=== PATIENT | female | born 1990 | race Caucasian/White ===

== ENCOUNTER 2016-04-03 22:52 | Outpatient (CLI) | payer BC, OTHER, MEDICAID ==
[~2016-04-03] VITALS: Ht 167.6 cm; Wt 122.9 kg
[~2016-04-03 22:52] MED LIST: ACET-789 PO; CPR500T PO; HYDR1TAB66 PO; INDO25CA PO; NITR-65 PO; ONDN4T PO; PREN-102 PO; PROG50VI5 IM
--- OUTSIDE RECORDS SUMMARY | 2016-04-03 22:56 | XMS REPORT | Continuity of Care Document ---
Author Author [facility] Organization [facility] Address Unknown Phone Unavailable Care Team Providers Care Air Hammer Stripper Name Role Phone NO, LOCAL PHYSICIAN PCP Unavailable Insurance Providers Payer Name Policy Number Subscriber Name Relationship Jimmy [employer] [id number] Rogers Roche 18 Self / Same As Patient Advance Directives Directive Response Recorded Date/Time Advance Directives No 01/05/16 8:17am Health Care Power of Bottom Precipitator Operator No 01/05/16 8:17am Organ Donor Yes 01/05/16 8:17am Resuscitation Status Full Code 01/05/16 8:17am Problems Active Problems Medical Problem Onset Date Status 18 weeks gestation of Unknown Acute Medications Current Home Medications Medication Dose Units Route Directions Days/Qty Instructions Start Date Vits #93/Iron Fum/Fa 1 Each 1 Each Oral Daily 01/14/14 Progesterone 50 Mg/1 Ml 50 Mg Intramusc Weekly 01/05/16 Past Home Medications Medication Directions Ordered Status Ondansetron Hcl 4 Mg Tab, 1 Tab Oral Every 6 Hours as needed 08/03/11 Discontinued Ciprofloxacin 500 Mg Tablet, 1 Tab Oral Twice A Day 08/03/11 Discontinued Hydrocodone Bit/Acetaminophen 1 Each Tablet, 1 Each Oral Every 6 Hours as needed 08/03/11 Discontinued Social History Social History Problem Response Recorded Date/Time Alcohol Use Rarely Uses 03/11/2014 8:35pm Recreational Drug Use N SMOKES MARIJUANA 03/11/2014 8:35pm Recent Foreign Travel No 01/05/2016 9:06am Recent Infectious Disease Exposure No 01/05/2016 9:06am Sexually Transmitted Disease No 03/11/2014 8:35pm Smoking Status Light Tobacco Smoker 01/05/2016 8:17am Recent Hopitalizations No 01/05/2016 8:17am Sexually Transmitted Disease No 03/11/2014 8:35pm Hx Sexually Transmitted Disorders No 08/05/2011 1:05pm Query Response Start Date Stop Date Smoking Status Light Tobacco Smoker Hospital Discharge Instructions No hospital discharge instructions. Plan of Care Discharge Date 01/05/16 9:16am Prescriptions See Medication Section Functional Status No functional status results. Allergies, Adverse Reactions, Alerts Allergen Type Severity Reaction Status Last Updated Penicillins ([id number]) Allergy Unknown Active 03/11/14 Immunizations No immunization records. Vital Signs Acute Vital Signs Vital Response Date/Time Height (Feet) 5 feet 01/05/2016 8:17am Height (Inches) 6.00 inches 01/05/2016 8:17am Height (Calculated Centimeters) 167.627303 cm 01/05/2016 8:17am Weight (Pounds) 255 pounds 01/05/2016 8:17am Weight (Ounces) 0.0 oz 01/05/2016 8:17am Weight (Calculated Grams) 967706.06 gm 01/05/2016 8:17am Weight (Calculated Kilograms) 115.177775 kilograms 01/05/2016 8:17am Calculated BMI 41.2 01/05/2016 8:17am Results No known relevant diagnostic tests, laboratory data and/or discharge summary. Procedures No known history of procedures. Encounters Encounter Location Arrival/Admit Date Discharge/Depart Date Attending Provider Departed Clinic [facility] 01/05/16 5:40am 01/05/16 9: 16am MYRON ABAD DO
[2016-04-03 23:14] VITALS: BP 136/64
[2016-04-03 23:26] LABS: BILIRUBIN,URINE NEGATIVE (NEGATIVE); KETONES,URINE NEGATIVE (NEGATIVE); LEUKOCYTE ESTERASE ,URINE 1+ (NEGATIVE); NITRITE,URINE NEGATIVE (NEGATIVE); PH,URINE 6 (5-9); PROTEIN,URINE NEGATIVE (NEGATIVE); UROBILINOGEN,URINE NORMAL (NORMAL)
[2016-04-03 23:44] LABS: SQUAMOUS EPITHELIAL CELL,UR 25-50 /HPF; WBC,URINE RARE /HPF
--- NOTE | 2016-04-05 11:59 | Physician Query-Final Dx ---
JAMES FITZPATRICK 04/05/16 1159: Clinic Account Progress/Dx Physician Query: Please give diagnosis Date of Service Apr 03, 2016 at 22:52 WILLIAM BULLARD DO 04/20/16 1003: Clinic Account Progress/Dx DIAGNOSIS: Diagnosis history of incompetent cervix history of cervical cerclage pelvic pressure JAMES FITZPATRICK Apr 05, 2016 11:59 WILLIAM BULLARD DO Apr 20, 2016 10:03
== END 2016-04-04 00:10 | disposition home or self-care (01) ==
LOC: LDRP 22:52 → WSo 22:52
PROVIDERS: ATTEND Obstetrics & Gynecology
DX: O99.89 Other specified diseases and conditions complicating pregnancy, childbirth and the puerperium (principal); R10.2 Pelvic and perineal pain; Z3A.30 30 weeks gestation of pregnancy
CPT/HCPCS: 81000; 99213

== ENCOUNTER 2016-05-17 08:45 | Outpatient (CLI) | payer BC, OTHER, MEDICAID ==
[~2016-05-17] VITALS: Ht 167.6 cm; Wt 126.1 kg
[2016-05-17 08:45] VITALS: BP 132/77
--- NOTE | 2016-05-18 14:08 | Physician Query-Final Dx ---
NAHID ESTEBAN 05/18/16 1408: Clinic Account Progress/Dx Physician Query: Please give diagnosis Date of Service May 17, 2016 at 08:45 MYRON ABAD DO 05/18/16 1844: Clinic Account Progress/Dx Physician Query: Date of Service 37 week IUP Contractions post cerclage removal NAHID ESTEBAN May 18, 2016 14:08 MYRON ABAD DO May 18, 2016 18:44
== END 2016-05-17 10:40 | disposition home or self-care (01) ==
LOC: DELPENDDIS → LDRP 08:45 → WSo 08:45
PROVIDERS: ATTEND Obstetrics & Gynecology
DX: O47.03 False labor before 37 completed weeks of gestation, third trimester (principal); Z3A.37 37 weeks gestation of pregnancy
CPT/HCPCS: 99213

== ENCOUNTER 2016-06-09 10:59 | Inpatient (IN) | payer BC, OTHER, MEDICAID ==
[~2016-06-09] VITALS: Ht 167.6 cm; Wt 126.6 kg
[2016-06-09] VITALS (11 sets, daily range): BP systolic 131–169; BP diastolic 59–93
[2016-06-09] MEDS ORDERED: MISOPROSTOL 100 MCG (CYTOTEC) TAB PO ONE ×2 (11:15→15:30)
[2016-06-09] MEDS: D5 LR IV SOLUTION 1,000 ML IV SCH ×2 (12:21→20:51)
[2016-06-09] MEDS: CLINDAMYCIN INJECTION 900 MG in NS (IVPB) 50 ML IV SCH ×2 (12:21→20:50)
[2016-06-09 12:26] LABS: BASOPHILS % (AUTO) 0 % (0-10); EOSINOPHILS # (AUTO) 0.1 10^3/uL (0.0-0.3); EOSINOPHILS % (AUTO) 0 % (0-10); LYMPHOCYTES # (AUTO) 2.2 X 10^3 (1.0-4.0); LYMPHOCYTES % (AUTO) 15 % (12-44); MEAN CORPUSCULAR HEMOGLOBIN 26 PG (25-34); MEAN CORPUSCULAR HGB CONC 34 G/DL (32-36); MEAN CORPUSCULAR VOLUME 76 FL (80-99); MEAN PLATELET VOLUME 9.9 FL (7.4-10.4); MONOCYTES # (AUTO) 0.8 X 10^3 (0.0-1.0); MONOCYTES % (AUTO) 5 % (0-12); NEUTROPHILS % (AUTO) 80 % (42-75); PLATELET COUNT 350 10^3/uL (130-400); RED BLOOD COUNT 4.49 10^6/uL (4.35-5.85); RED CELL DISTRIBUTION WIDTH 14.4 % (10.0-14.5)
[2016-06-09] MEDS ORDERED: CATHETER FLUSH 10 ML SYR IV PRN (14:00)
[2016-06-09] MEDS: MISOPROSTOL 100 MCG (CYTOTEC) TAB PO SCH (20:51)
[2016-06-10] VITALS (68 sets, daily range): BP systolic 114–198; BP diastolic 54–103
[2016-06-10] MEDS: MISOPROSTOL 100 MCG (CYTOTEC) TAB PO SCH ×2 (00:29→04:34)
[2016-06-10] MEDS: CLINDAMYCIN INJECTION 900 MG in NS (IVPB) 50 ML IV SCH ×2 (04:34→12:35)
[2016-06-10] MEDS: D5 LR IV SOLUTION 1,000 ML IV SCH ×2 (04:37→12:35)
[2016-06-10] MEDS ORDERED: OXYTOCIN/NORMAL SALINE 500 ML IV SCH ×2 (07:18→21:35)
[2016-06-10] MEDS ORDERED: SUFENTA 0.6MCG/ML BUPIVA 0.125 100 ML ONE (09:09)
[2016-06-10] MEDS ORDERED: BUPIVACAINE 0.25% 30 ML (SENSORCAINE) VIAL ONE ×2 (09:26→20:19)
[2016-06-10] MEDS ORDERED: LACTATED RINGERS 1,000 ML IV ONE (09:33)
[2016-06-10] MEDS ORDERED: ONDANSETRON 4 MG/2 ML (SDV) Z0FRAN IV PRN (09:45)
[2016-06-10] MEDS ORDERED: EPIDURAL (SUFENTA 0.6MCG/ML BUPIVA 0.125%) 100 ML BAG EPI SCH (09:45)
--- NOTE | 2016-06-10 10:15 | History & Physical-OB ---
OB - Chief Complaint & HPI Date Date of Admission: Date of Admission: Jun 09, 2016 at 10:59 am Chief Complaint/History OB-Reason for Admission/Chief: Induction of Labor Hx : 2 Hx Para: 1 Expected Date of Delivery: Jun 06, 2016 Gestational Age in Weeks: 40 Gestational Age in Days: 4 Indication for induction: post dates Admission Nurse Assessment Rev: Yes History of Labs A pos Antibody neg RI RPR NR HBsAg NR HIV NR GC neg GBS + Allergies and Home Medications Allergies Coded Allergies: Penicillins (Unverified Allergy, Unknown, 03/11/14) Home Medications Vits #93/Iron Fum/Fa 1 Each Tablet, 1 EACH PO DAILY, (Reported) OB - History Hx of Present Care: Yes Ultrasounds: Normal mid trimester US Obstetrical Complications: Other (Hx of PTL, on 17 OHP through 35 weeks and cerclage placement 15-37 weeks) Medical Complications: None Delivery History Hx Blood Disorders: No Adverse Rxn to Tranfusion: No Patient Past Medical History Asthma, Nephrolithiasis (history of), BMI 45 Social History/Family History HIV/AIDS: No Recent Infectious Disease Expo: No Sexually Transmitted Disease: No Alcohol Use: Denies Use Recreational Drug Use: No Immunizations Hepatitis A: Yes Hepatitis B: Yes Tetanus Booster (TDap): Unknown Date of Influenza Vaccine: Feb 15, 2016 OB - Admission Exam Physical Exam Vitals: Vital Signs 06/10/16 08:15 Temp 97.6 Pulse 104 Resp 18 B/P (MAP) 146/86 O2 Delivery Room Air HEENT: NCAT Heart: Rhythm Normal Lungs: Clear Abdomen: Gravid Extremities: Normal Reflexes: Normal Cervical Dilatation: 2cm Effacement: 75% Station: -1 Membranes: Intact Heart Rate: 130's Accelerations: Accelerations Present Decelerations: No Decelerations Short Term Variability: Present Half-Way Variability: Average (6-25) Contractions on Admission: None Intensity: Mild Maria Scoring Tool (Modified) Dilation (cm): 1-2cm (1) Effacement (%): 51-79% (2) Descent/Station: -1,0 (2) Cervix Consistency: Soft (2) Cervix Position: Anterior (2) Add 1 point for: Each previous vaginal delivery (1) Maria Score: 10 Labs Laboratory Tests Test 06/09/16 12:16 Range/Units White Blood Count 15.0 H 4.3-11.0 10^3/uL Red Blood Count 4.49 4.35-5.85 10^6/uL Hemoglobin 11.5 11.5-16.0 G/DL Hematocrit 34 L 35-52 % Mean Corpuscular Volume 76 L 80-99 FL Mean Corpuscular Hemoglobin 26 25-34 PG Mean Corpuscular Hemoglobin Concent 34 32-36 G/DL Red Cell Distribution Width 14.4 10.0-14.5 % Platelet Count 350 130-400 10^3/uL Mean Platelet Volume 9.9 7.4-10.4 FL Neutrophils (%) (Auto) 80 H 42-75 % Lymphocytes (%) (Auto) 15 12-44 % Monocytes (%) (Auto) 5 0-12 % Eosinophils (%) (Auto) 0 0-10 % Basophils (%) (Auto) 0 0-10 % Neutrophils # (Auto) 12.0 H 1.8-7.8 X 10^3 Lymphocytes # (Auto) 2.2 1.0-4.0 X 10^3 Monocytes # (Auto) 0.8 0.0-1.0 X 10^3 Eosinophils # (Auto) 0.1 0.0-0.3 10^3/uL Basophils # (Auto) 0.0 0.0-0.1 10^3/uL OB - Assessment/Plan/Diagnosis Assessment Assessment: group B positive strep, induction of labor Plan Plan: Induction Induction Method: per Misoprostol Protocol Discharge Diagnosis Diagnosis: 26 yo @ 40.4 weeks Post dates Hx of PTL and delivery at 28 weeks GBS + BMI 45 MYRON ABAD DO Jun 10, 2016 10:15 am
[2016-06-10] MEDS ORDERED: LIDOCAINE/EPI 1%-1:200,000 (XYLOCAINE) 30 ML VIAL ONE (15:18)
[2016-06-10] MEDS ORDERED: LIDOCAINE/EPI 1%-1:200,000 (XYLOCAINE) 30 ML VIAL INJ ONE (16:30)
[2016-06-10] MEDS ORDERED: METOCLOPRAMIDE INJ 10 MG/2 ML (REGLAN) ONE (20:03)
[2016-06-10] MEDS ORDERED: CITRIC ACID/SOB CIT (BICITRA) 30 ML UDC ONE (20:03)
[2016-06-10] MEDS ORDERED: LIDOCAINE PF 2% 10 ML (XYLOCAINE) AMP ONE (20:19)
[2016-06-10] MEDS ORDERED: fentaNYL INJECTION 100 MCG/2 ML AMP ONE (20:19)
--- NOTE | 2016-06-10 20:20 | Progress Note-Standard ---
Standard Progress Note Progress Notes/Assess & Plan Progress/Assessment & Plan this 26-year-old was induced for postdates at 40 weeks and 4 days gestation as well as elevation of blood pressure noted in the office. She was sent up yesterday from the office and started on Cytotec for cervical ripening her cervix on admission was 2-3 cm. She was continued on this overnight and continued a good contraction pattern of every 2-3 minutes. This morning and presented and the patient was 3-4 cm and I artificially rupture membranes clear fluid was noted. She was started on Pitocin augmentation to continue a regular contraction pattern and shortly thereafter received an epidural for analgesia. She progressed throughout the day to and 9-1/2 anterior rim, this was my evaluation approximate 4 o'clock this afternoon. We tried several different positioning techniques to try and bring the vertex down. We tried hands and knees, high Keating's, and squatting position over the next 4 hours with no improvement in station, and starting to swell of this anterior cervical lip. Due to cephalopelvic disproportion I discussed the patient proceeding with primary . Risk of the procedure was discussed with the patient detail, family was present during the conversation. Consent was obtained, we' ll proceed as soon as room and anesthesia staff are available as status is stable at this time. MYRON ABAD DO Jun 10, 2016 20:20
[2016-06-10] MEDS ORDERED: ceFAZolin 2 GM/50 ML NS 50 ML IV ONE (20:30)
[2016-06-10] MEDS ORDERED: KETOROLAC 30 MG/ML VIAL ONE (21:24)
[2016-06-10] MEDS ORDERED: OXYTOCIN/NORMAL SALINE 1,000 ML IV ONE (21:25)
--- NOTE | 2016-06-10 21:38 | Discharge Inst-Women's Service ---
Discharge Inst-Women's Serv Consults/Follow Up Additional Follow Up: Yes Orders/Referrals Dr. Delgado in 7-10 days and in 6 weeks Activity Activity: Activity as Tolerated Driving Instructions: No Driving for 1 Week NO SMOKING: NO SMOKING Nothing Inside Vagina: No Douching, No [place], No Tampons Diet Discharge Diet: No Restrictions Symptoms to Report to : Bleeding Excessive, Pain Increased, Fever Over 101 Degrees F, Vaginal Bleeding Increase, Questions/Concerns For Any Problems or Questions: Contact Your Physician Skin/Wound Care Infection Signs and Symptoms: Increased Redness, Foul Odor of Wound, Increased Drainage, Skin Itchy or Has a Rash, Increased Swelling, Temperature Above 101 F Operative Area Clean and Dry: Keep Incision Clean/Dry Stitches/[place]/Dermabond: Dermabond, Care of Stitches Bathing Instructions: MYRON Parikh DO Jun 10, 2016 21:38
[2016-06-10] MEDS ORDERED: DOCU100C37 PO (21:40)
[2016-06-10] MEDS ORDERED: HYDR-3812 PO (21:40)
[2016-06-10] MEDS ORDERED: IBUP-1773 PO (21:40)
[2016-06-10] MEDS ORDERED: ONDANSETRON 4 MG/2 ML (SDV) Z0FRAN IVP PRN (21:45)
[2016-06-10] MEDS ORDERED: HYDROmorphone (DILAUDID) 2 MG/ML VIAL IVP PRN (21:45)
[2016-06-10] MEDS ORDERED: HYDROcodone/APAP 5 MG/325 MG (LORTAB) TAB PO PRN (21:45)
[2016-06-10] MEDS ORDERED: MEASLES,MUMPS,RUBELLA 1 EA INJ SC SCH (21:45)
[2016-06-10] MEDS ORDERED: TETANUS,DIPTH,PERTUSS P/F (BOOSTRIX) 0.5 ML VIAL IM SCH (21:45)
--- NOTE | 2016-06-10 21:55 | Progress Note-Post Operative ---
Post-Operative Progess Note Surgeon (s)/Upper Extremity Surgeon (s) Surgeon MYRON ABAD DO Upper Extremity Surgeon: n/a Pre-Operative Diagnosis CPD Post-Operative Diagnosis same Post-Op Procedure Note Date of Procedure: Jun 10, 2016 Name of Procedure Performed: PLTCS Description of the Procedure: see dictation Findings of the Procedure see dictation Anesthesia Type GETA Estimated blood loss (mL): 1000 Specimen(s) collected/removed n/a MYRON ABAD DO Jun 10, 2016 9:55 pm
[2016-06-10] MEDS ORDERED: CATHETER FLUSH 10 ML SYR IV SCH (22:00)
[2016-06-11] MEDS ORDERED: FAMOTIDINE 20MG/2ML IV (PEPCID) IVP ONE (03:15)
[2016-06-11] MEDS ORDERED: LACTATED RINGERS 1,000 ML IV ONE (03:15)
[2016-06-11 03:35] VITALS: BP 134/79
[2016-06-11] MEDS: KETOROLAC 30 MG/ML VIAL IVP SCH ×4 (03:41→16:17)
[2016-06-11 06:23] LABS: BASOPHILS % (AUTO) 0 % (0-10); EOSINOPHILS % (AUTO) 0 % (0-10); LYMPHOCYTES # (AUTO) 2.3 X 10^3 (1.0-4.0); LYMPHOCYTES % (AUTO) 14 % (12-44); MEAN CORPUSCULAR HEMOGLOBIN 25 PG (25-34); MEAN CORPUSCULAR HGB CONC 33 G/DL (32-36); MEAN CORPUSCULAR VOLUME 77 FL (80-99); MONOCYTES # (AUTO) 0.9 X 10^3 (0.0-1.0); MONOCYTES % (AUTO) 5 % (0-12); NEUTROPHILS # (AUTO) 13.6 X 10^3 (1.8-7.8); NEUTROPHILS % (AUTO) 81 % (42-75); PLATELET COUNT 285 10^3/uL (130-400); RED BLOOD COUNT 3.75 10^6/uL (4.35-5.85); RED CELL DISTRIBUTION WIDTH 14.3 % (10.0-14.5); WHITE BLOOD COUNT 16.8 10^3/uL (4.3-11.0)
--- NOTE | 2016-06-11 06:25 | OPERATIVE REPORT ---
DATE OF SERVICE: PREOPERATIVE DIAGNOSES: 1. A 26-year-old G2, P1 at 40 weeks and 4 days gestation. 2. Cephalopelvic disporportion. POSTOPERATIVE DIAGNOSES: 1. A 26-year-old G2, P1 at 40 weeks and 4 days gestation. 2. Cephalopelvic disporpotion. PROCEDURE: Primary low transverse section. SURGEON: Dr. Humberto Delgado. ANESHTESIA: Epidural which is bolused. ESTIMATED BLOOD LOSS: 1,000 mL. URINE OUTPUT: 100 mL, slightly pink tinged at the end of the procedure. FLUIDS: 1,500 mL of lactated ringer solution. FINDINGS: An alive male weighing 8 pounds 8 ounces, Apgars of 8 and 9, grossly normal appearing uterus, bilateral fallopian tubes and ovaries. INDICATIONS FOR PROCEDURE: This 26-year-old female was admitted yesterday for induction of labor due to post dates and elevation of blood pressure. Please see her preoperative progress note for complete details pertaining to the patient's preoperative indications for procedure as well as discussion about risks with the family. OPERATIVE REPORT IN DETAIL: The patient was then taken to the operating room where epidural induced and found to be adequate, placed in the supine position with a leftward tilt. Prepped and draped in the normal sterile fashion. Anesthesia is tested and timeout is performed. I then proceeded with making a Pfannenstiel skin incision using a knife and carrying down to the underlying fascia using Bovie cautery. The fascial incision was extended laterally using Bovie cautery. Superior aspect of the fascial incision was then grasped with Swati clamps and dissected off the underlying rectus muscle. The inferior aspect of the fascial incision was then grasped with Swati clamps, tented upwards and dissected off of the underlying rectus muscles. The rectus muscles were then dissected down the midline using Metzenbaum scissors which exposes the peritoneum, which was entered bluntly. The peritoneum incision is then extended superiorly and inferiorly with Metzenbaum scissors with good visualization of the underlying bowel and bladder. I then proceeded with the placing the Aniceto ring retractor into the peritoneal incision, for excellent lateral side wall retraction. I then identified the lower uterine segment which is very thinned out. I made an incision through the vesicouterine peritoneum using my knife and bluntly dissected this off the lower uterine segment creating a bladder flap. I then proceeded with my myotomy until membranes are visualized at which point I extended the uterine incision laterally and superiorly using bandage scissors. The infant is vertex presentation, occiput posterior. I elevated the infant's head up to the incision which under fundal pressure, the infant's head is delivered through the incision where the nares and oropharynx are bulb suctioned. The anterior posterior shoulders are delivered. The infant is then brought into the operative field where cord was doubly clamped and cut and the was handed off to waiting pediatric nurses and attendants. Cord blood was collected. Three vessel cord was intact. The placenta was delivered spontaneously thereafter. IV Pitocin was initiated to facilitate uterine contraction. The uterine fundus becomes firmer by manual massage. The uterus was then exteriorized and cleared of all endometrial clots and debris. I then proceeded with closing the uterine incision using 0 Vicryl suture in a running lock fashion. A second layer of imbricating 0 Monocryl was placed. Excellent hemostasis was noted after doing so. I then placed the uterus back within the pelvis and copiously irrigated the pelvis using normal saline. There was active bleeding in the dissection plane so we proceeded placing Intercede adhesive over my low transverse incision. I closed the peritoneum using 3-0 Vicryl suture in a running fashion. The rectus muscles were reapproximated using 3-0 Vicryl in an interrupted fashion. The fascia was reapproximated using 0 Vicryl suture in a running fashion. Subcutaneous tissue reapproximated using 3-0 plain, interrupted subcutaneous stitch and the skin was reapproximated using 4-0 Monocryl subcuticular. Dermabond was applied to the incision and sterile dressing is adhesive white tape. The patient tolerated the procedure well, sent to recovery in stable condition. Lap and sponge counts are correct during the procedure. Instrument count correct as well. 2 grams of Ancef were given preoperatively for infectious prophylaxis. Job ID: [id number] DocumentID: [id number] Dictated Date: 06/10/2016 21:44:16 Prop Cutter Date: 06/11/2016 06:24:48 Dictated By: DO MARICARMEN LEE
[2016-06-11 08:00] VITALS: BP 138/84
[2016-06-11] MEDS: DOCUSATE SODIUM 100 MG (COLACE) CAP PO SCH ×2 (08:54→21:42)
--- NOTE | 2016-06-11 09:23 | Postpartum Progress Note ---
Post Op Post-operative Day #1 Subjective: Patient is without complaints. Ambulating, voiding after alvarado removed. Tolerating a regular diet without nausea or vomiting. Normal lochia. Pain is well controlled with oral pain medications. Passing flatus. Breast feeding. Objective: VS - Last 72 Hours, by Label 06/09/16 06/09/16 06/09/16 06/09/16 11:10 12:24 13:25 14:25 Pulse 100 100 100 104 Resp 18 18 18 18 B/P (MAP) 142/76 169/91 131/65 132/65 O2 Delivery Room Air Room Air Room Air Room Air 06/09/16 06/09/16 06/09/16 06/09/16 16:25 17:25 18:25 20:00 Temp 98.1 Pulse 96 96 96 96 Resp 18 18 18 18 B/P (MAP) 137/63 132/71 135/93 143/67 O2 Delivery Room Air Room Air Room Air Room Air 06/09/16 06/09/16 06/09/16 06/10/16 21:00 22:00 23:00 00:00 Temp 97.7 97.7 Pulse 99 97 95 99 Resp 18 18 18 18 B/P (MAP) 136/74 134/59 140/65 123/77 O2 Delivery Room Air Room Air Room Air Room Air 06/10/16 06/10/16 06/10/16 06/10/16 01:00 02:00 03:00 04:00 Temp 97.3 Pulse 90 83 86 81 Resp 18 18 18 18 B/P (MAP) 115/54 116/59 138/65 134/62 O2 Delivery Room Air Room Air Room Air Room Air 06/10/16 06/10/16 06/10/16 06/10/16 05:00 06:00 07:00 07:30 Pulse 81 104 82 94 Resp 18 18 18 18 B/P (MAP) 134/62 137/63 123/58 133/70 O2 Delivery Room Air Room Air Room Air Room Air 06/10/16 06/10/16 06/10/16 06/10/16 08:15 08:45 09:00 09:15 Temp 97.6 Pulse 104 88 80 107 Resp 18 18 18 18 B/P (MAP) 146/86 166/70 154/70 160/83 O2 Delivery Room Air 4/20/17 4/20/17 4/20/17 4/20/17 09:30 09:45 09:50 09:55 Pulse 93 93 76 110 Resp 18 18 18 B/P (MAP) 155/103 160/70 161/74 Pulse Ox 98 94 4/20/17 4/20/17 4/20/17 4/20/17 10:00 10:05 10:08 10:10 Pulse 109 97 93 96 Resp 18 18 18 18 B/P (MAP) 123/69 127/61 134/61 126/58 Pulse Ox 97 98 98 98 4/20/17 4/20/17 4/20/17 4/20/17 10:15 10:18 10:21 10:27 Temp 97.1 Pulse 107 104 96 99 Resp 18 18 18 B/P (MAP) 124/58 138/59 115/56 Pulse Ox 99 97 99 98 4/20/17 4/20/17 4/20/17 4/20/17 10:30 10:35 10:40 10:45 Pulse 100 97 105 96 Resp 18 18 18 18 B/P (MAP) 127/58 125/57 123/59 128/58 Pulse Ox 99 99 99 99 4/20/17 4/20/17 4/20/17 4/20/17 10:50 11:00 11:15 11:30 Pulse 104 91 99 82 Resp 18 18 18 18 B/P (MAP) 129/56 122/58 132/60 Pulse Ox 99 98 99 99 4/20/17 4/20/17 4/20/17 4/20/17 11:45 12:00 12:15 12:30 Temp 97.8 Pulse 89 89 94 95 Resp 18 18 18 18 B/P (MAP) 128/59 130/62 129/58 123/59 Pulse Ox 99 98 99 98 4/20/17 4/20/17 4/20/17 4/20/17 12:45 13:00 13:15 13:30 Temp 97.7 Pulse 96 100 100 96 Resp 18 18 18 18 B/P (MAP) 125/59 136/66 135/63 136/65 Pulse Ox 98 98 98 97 4/20/17 4/20/17 4/20/17 4/20/17 13:45 14:00 14:15 14:30 Pulse 97 88 96 85 Resp 18 18 18 18 B/P (MAP) 114/60 147/79 139/72 135/70 Pulse Ox 97 96 98 98 4/20/17 4/20/17 4/20/17 4/20/17 14:45 15:00 15:15 15:30 Temp 98.5 Pulse 88 93 94 96 Resp 18 18 18 18 B/P (MAP) 134/60 134/64 125/62 131/63 Pulse Ox 98 100 98 98 4/20/17 4/20/17 4/20/17 4/20/17 15:45 16:00 16:15 16:30 Pulse 99 97 96 109 Resp 18 18 18 18 B/P (MAP) 131/62 135/67 139/62 127/78 Pulse Ox 98 98 98 98 /20/17 4/20/17 4/20/17 4/20/17 16:45 17:00 17:15 17:30 Pulse 96 98 103 Resp 18 18 18 B/P (MAP) 141/64 138/64 142/82 4/20/17 4/20/17 4/20/17 4/20/17 17:45 18:00 18:15 18:30 Temp 99.0 Pulse 98 82 82 82 Resp 18 18 18 18 B/P (MAP) 144/62 143/66 142/65 147/66 /20/17 4/20/17 4/20/17 4/20/17 18:45 19:00 19:15 19:30 Temp 98.9 Pulse 76 83 93 82 Resp 18 18 18 18 B/P (MAP) 153/83 145/71 154/72 159/74 4/20/17 4/20/17 4/20/17 4/20/17 19:45 20:00 20:15 20:30 Pulse 78 87 100 96 Resp 18 18 18 18 B/P (MAP) 184/80 147/66 198/94 140/80 4/20/17 4/20/17 4/20/17 4/21/17 20:39 23:00 23:36 03:35 Temp 98.4 98.5 97.9 Pulse 97 90 87 102 Resp 18 18 19 19 B/P (MAP) 147/68 128/65 117/55 134/79 Pulse Ox 98 98 97 O2 Delivery Room Air Room Air Room Air 06/11/16 08:00 Temp 97.8 Pulse 98 Resp 20 B/P (MAP) Pulse Ox 98 O2 Delivery Room Air Physical Exam: General - Alert and oriented, no apparent distress Abdomen - Soft, appropriately tender to palpation, non-distended, fundus firm at umbilicus Incision - clean, dry and intact; no erythema or induration, no drainage Extremities - 1+ bilat pitting LE edema, negative Sanjuanita's bilaterally Laboratory Tests Test 06/11/16 05:58 Range/Units White Blood Count 16.8 H 4.3-11.0 10^3/uL Red Blood Count 3.75 L 4.35-5.85 10^6/uL Hemoglobin 9.5 L 11.5-16.0 G/DL Hematocrit 29 L 35-52 % Mean Corpuscular Volume 77 L 80-99 FL Mean Corpuscular Hemoglobin 25 25-34 PG Mean Corpuscular Hemoglobin Concent 33 32-36 G/DL Red Cell Distribution Width 14.3 10.0-14.5 % Platelet Count 285 130-400 10^3/uL Mean Platelet Volume 10.0 7.4-10.4 FL Neutrophils (%) (Auto) 81 H 42-75 % Lymphocytes (%) (Auto) 14 12-44 % Monocytes (%) (Auto) 5 0-12 % Eosinophils (%) (Auto) 0 0-10 % Basophils (%) (Auto) 0 0-10 % Neutrophils # (Auto) 13.6 H 1.8-7.8 X 10^3 Lymphocytes # (Auto) 2.3 1.0-4.0 X 10^3 Monocytes # (Auto) 0.9 0.0-1.0 X 10^3 Eosinophils # (Auto) 0.0 0.0-0.3 10^3/uL Basophils # (Auto) 0.0 0.0-0.1 10^3/uL Assessment: 26 y/o post-operative day # 1, status post PLTCS for arrest of labor, CPD. Recovering well, hemodynamically stable Acute blood loss anemia Hgb 9.5 Rh+ Class III obesity BMI 45 Elevated BPs Plan: Routine post-operative care. Watch BPs. Had elevated BPs before 20 wga, likely cHTN. Will observe closely. No si/sx pre-eclampsia. Encourage breast feeding. Encourage ambulation. VTE prophylaxis: SCDs and lovenox given multiple risk factors. Ferrous sulfate supplementation. Plan for discharge POD#2 or 3. Vitals - Labs Vital Signs - I&O Vital Signs Date Time Temp Pulse Resp B/P (MAP) Pulse Ox O2 Delivery O2 Flow Rate FiO2 06/11/16 08:00 97.8 98 20 98 Room Air 06/11/16 03:35 97.9 102 19 134/79 97 Room Air 06/10/16 23:36 98.5 87 19 117/55 98 Room Air 06/10/16 23:00 98.4 90 18 128/65 98 Room Air 06/10/16 20:39 97 18 147/68 06/10/16 20:30 96 18 140/80 06/10/16 20:15 100 18 198/94 06/10/16 20:00 87 18 147/66 06/10/16 19:45 78 18 184/80 06/10/16 19:30 98.9 82 18 159/74 06/10/16 19:15 93 18 154/72 06/10/16 19:00 83 18 145/71 06/10/16 18:45 76 18 153/83 06/10/16 18:30 82 18 147/66 06/10/16 18:15 99.0 82 18 142/65 06/10/16 18:00 82 18 143/66 06/10/16 17:45 98 18 144/62 06/10/16 17:30 103 18 142/82 06/10/16 17:15 98 18 138/64 06/10/16 17:00 96 18 141/64 06/10/16 16:45 06/10/16 16:30 109 18 127/78 98 06/10/16 16:15 96 18 139/62 98 06/10/16 16:00 97 18 135/67 98 06/10/16 15:45 99 18 131/62 98 06/10/16 15:30 98.5 96 18 131/63 98 06/10/16 15:15 94 18 125/62 98 06/10/16 15:00 93 18 134/64 100 06/10/16 14:45 88 18 134/60 98 06/10/16 14:30 85 18 135/70 98 06/10/16 14:15 96 18 139/72 98 06/10/16 14:00 88 18 147/79 96 06/10/16 13:45 97 18 114/60 97 06/10/16 13:30 97.7 96 18 136/65 97 06/10/16 13:15 100 18 135/63 98 06/10/16 13:00 100 18 136/66 98 06/10/16 12:45 96 18 125/59 98 06/10/16 12:30 95 18 123/59 98 06/10/16 12:15 94 18 129/58 99 06/10/16 12:00 97.8 89 18 130/62 98 06/10/16 11:45 89 18 128/59 99 06/10/16 11:30 82 18 132/60 99 06/10/16 11:15 99 18 122/58 99 06/10/16 11:00 91 18 98 06/10/16 10:50 104 18 129/56 99 06/10/16 10:45 96 18 128/58 99 06/10/16 10:40 105 18 123/59 99 06/10/16 10:35 97 18 125/57 99 06/10/16 10:30 100 18 127/58 99 06/10/16 10:27 99 18 115/56 98 06/10/16 10:21 96 18 138/59 99 06/10/16 10:18 97.1 104 18 124/58 97 06/10/16 10:15 107 99 06/10/16 10:10 96 18 126/58 98 06/10/16 10:08 93 18 134/61 98 06/10/16 10:05 97 18 127/61 98 06/10/16 10:00 109 18 123/69 97 06/10/16 09:55 110 18 94 06/10/16 09:50 76 161/74 06/10/16 09:45 93 18 160/70 98 06/10/16 09:30 93 18 155/103 I & O 06/11/16 07:00 Intake Total 3200 ml Output Total 700 ml Balance 2500 ml Labs Laboratory Tests 06/11/16 05:58: White Blood Count 16.8H, Red Blood Count 3.75L, Hemoglobin 9.5L, Hematocrit 29L , Mean Corpuscular Volume 77L, Mean Corpuscular Hemoglobin 25, Mean Corpuscular Hemoglobin Concent 33, Red Cell Distribution Width 14.3, Platelet Count 285, Mean Platelet Volume 10.0, Neutrophils (%) (Auto) 81H, Lymphocytes (%) (Auto) 14 , Monocytes (%) (Auto) 5, Eosinophils (%) (Auto) 0, Basophils (%) (Auto) 0, Neutrophils # (Auto) 13.6H, Lymphocytes # (Auto) 2.3, Monocytes # (Auto) 0.9, Eosinophils # (Auto) 0.0, Basophils # (Auto) 0.0 YANI FAN MD Jun 11, 2016 09:23
[2016-06-11] MEDS: ENOXAPARIN 40 MG/0.4 ML (LOVENOX) SYR SC SCH (11:53)
[2016-06-11 12:00] VITALS: BP 144/88
--- NOTE | 2016-06-11 14:44 | Anesthesia-Regional Post-Op ---
Regional Patient Condition Mental Status: Alert, Oriented x3 Circulation: Same as Pre-Op Headache: Absent Sensation: Full Recovery Motor Block: Absent Post Op Complications Complications None Follow Up Care/Instructions Patient Instructions None needed. Anesthesia/Patient Condition Patient is doing well, no complaints, stable vital signs, no apparent adverse anesthesia problems. No complications reported per nursing. MAGALIS HARRELL CRNA Jun 11, 2016 14:44
[2016-06-11] MEDS: IBUPROFEN 600 MG (MOTRIN) TAB PO SCH ×2 (16:41→21:44)
[2016-06-11] MEDS: FERROUS SULF 325 MG (IRON) TAB PO SCH (16:41)
[2016-06-11 20:15] VITALS: BP 152/87
[2016-06-12] VITALS: BP 139/76
[2016-06-12] MEDS: IBUPROFEN 600 MG (MOTRIN) TAB PO SCH ×2 (03:42→10:15)
[2016-06-12 08:00] VITALS: BP 141/85
--- NOTE | 2016-06-12 08:21 | Postpartum Progress Note ---
Post Op Post-operative Day #2 Subjective: Patient is without complaints. Ambulating, voiding. Tolerating a regular diet without nausea or vomiting. Normal lochia. Pain is well controlled with oral pain medications. Passing flatus. Objective: VS - Last 72 Hours, by Label 06/09/16 06/09/16 06/09/16 06/09/16 11:10 12:24 13:25 14:25 Pulse 100 100 100 104 Resp 18 18 18 18 B/P (MAP) 142/76 169/91 131/65 132/65 O2 Delivery Room Air Room Air Room Air Room Air 06/09/16 06/09/16 06/09/16 06/09/16 16:25 17:25 18:25 20:00 Temp 98.1 Pulse 96 96 96 96 Resp 18 18 18 18 B/P (MAP) 137/63 132/71 135/93 143/67 O2 Delivery Room Air Room Air Room Air Room Air 06/09/16 06/09/16 06/09/16 06/10/16 21:00 22:00 23:00 00:00 Temp 97.7 97.7 Pulse 99 97 95 99 Resp 18 18 18 18 B/P (MAP) 136/74 134/59 140/65 123/77 O2 Delivery Room Air Room Air Room Air Room Air 06/10/16 06/10/16 06/10/16 06/10/16 01:00 02:00 03:00 04:00 Temp 97.3 Pulse 90 83 86 81 Resp 18 18 18 18 B/P (MAP) 115/54 116/59 138/65 134/62 O2 Delivery Room Air Room Air Room Air Room Air 06/10/16 06/10/16 06/10/16 06/10/16 05:00 06:00 07:00 07:30 Pulse 81 104 82 94 Resp 18 18 18 18 B/P (MAP) 134/62 137/63 123/58 133/70 O2 Delivery Room Air Room Air Room Air Room Air 06/10/16 06/10/16 06/10/16 06/10/16 08:15 08:45 09:00 09:15 Temp 97.6 Pulse 104 88 80 107 Resp 18 18 18 18 B/P (MAP) 146/86 166/70 154/70 160/83 O2 Delivery Room Air 4/20/17 4/20/17 4/20/17 4/20/17 09:30 09:45 09:50 09:55 Pulse 93 93 76 110 Resp 18 18 18 B/P (MAP) 155/103 160/70 161/74 Pulse Ox 98 94 4/20/17 4/20/17 4/20/17 4/20/17 10:00 10:05 10:08 10:10 Pulse 109 97 93 96 Resp 18 18 18 18 B/P (MAP) 123/69 127/61 134/61 126/58 Pulse Ox 97 98 98 98 4/20/17 4/20/17 4/20/17 4/20/17 10:15 10:18 10:21 10:27 Temp 97.1 Pulse 107 104 96 99 Resp 18 18 18 B/P (MAP) 124/58 138/59 115/56 Pulse Ox 99 97 99 98 4/20/17 4/20/17 4/20/17 4/20/17 10:30 10:35 10:40 10:45 Pulse 100 97 105 96 Resp 18 18 18 18 B/P (MAP) 127/58 125/57 123/59 128/58 Pulse Ox 99 99 99 99 4/20/17 4/20/17 4/20/17 4/20/17 10:50 11:00 11:15 11:30 Pulse 104 91 99 82 Resp 18 18 18 18 B/P (MAP) 129/56 122/58 132/60 Pulse Ox 99 98 99 99 4/20/17 4/20/17 4/20/17 4/20/17 11:45 12:00 12:15 12:30 Temp 97.8 Pulse 89 89 94 95 Resp 18 18 18 18 B/P (MAP) 128/59 130/62 129/58 123/59 Pulse Ox 99 98 99 98 4/20/17 4/20/17 4/20/17 4/20/17 12:45 13:00 13:15 13:30 Temp 97.7 Pulse 96 100 100 96 Resp 18 18 18 18 B/P (MAP) 125/59 136/66 135/63 136/65 Pulse Ox 98 98 98 97 4/20/17 4/20/17 4/20/17 4/20/17 13:45 14:00 14:15 14:30 Pulse 97 88 96 85 Resp 18 18 18 18 B/P (MAP) 114/60 147/79 139/72 135/70 Pulse Ox 97 96 98 98 4/20/17 4/20/17 4/20/17 4/20/17 14:45 15:00 15:15 15:30 Temp 98.5 Pulse 88 93 94 96 Resp 18 18 18 18 B/P (MAP) 134/60 134/64 125/62 131/63 Pulse Ox 98 100 98 98 4/20/17 4/20/17 4/20/17 4/20/17 15:45 16:00 16:15 16:30 Pulse 99 97 96 109 Resp 18 18 18 18 B/P (MAP) 131/62 135/67 139/62 127/78 Pulse Ox 98 98 98 98 /20/17 4/20/17 4/20/17 4/20/17 16:45 17:00 17:15 17:30 Pulse 96 98 103 Resp 18 18 18 B/P (MAP) 141/64 138/64 142/82 4/20/17 4/20/17 4/20/17 4/20/17 17:45 18:00 18:15 18:30 Temp 99.0 Pulse 98 82 82 82 Resp 18 18 18 18 B/P (MAP) 144/62 143/66 142/65 147/66 4/20/17 4/20/17 4/20/17 4/20/17 18:45 19:00 19:15 19:30 Temp 98.9 Pulse 76 83 93 82 Resp 18 18 18 18 B/P (MAP) 153/83 145/71 154/72 159/74 4/20/17 4/20/17 4/20/17 4/20/17 19:45 20:00 20:15 20:30 Pulse 78 87 100 96 Resp 18 18 18 18 B/P (MAP) 184/80 147/66 198/94 140/80 4/20/17 4/20/17 4/20/17 4/21/17 20:39 23:00 23:36 03:35 Temp 98.4 98.5 97.9 Pulse 97 90 87 102 Resp 18 18 19 19 B/P (MAP) 147/68 128/65 117/55 134/79 Pulse Ox 98 98 97 O2 Delivery Room Air Room Air Room Air 06/11/16 406/11/16 06/11/16 08:00 09:00 12:00 16:00 Temp 97.8 98.9 98.6 Pulse 98 98 98 Resp 20 20 20 B/P (MAP) 138/84 144/88 Pulse Ox 98 98 98 O2 Delivery Room Air Room Air Room Air 06/11/16 06/12/16 20:15 00:00 Temp 97.7 97.5 Pulse 104 100 Resp 19 17 B/P (MAP) 152/87 139/76 Pulse Ox 97 97 O2 Delivery Room Air Room Air Physical Exam: General - Alert and oriented, no apparent distress Abdomen - Soft, appropriately tender to palpation, non-distended, fundus firm at umbilicus Incision - clean, dry and intact; no erythema or induration, no drainage Extremities - trace bilat pitting edema, negative Sanjuanita's bilaterally no new labs Assessment: 26 y/o post-operative day # 2, status post PLTCS for arrest of labor, CPD. Recovering well, hemodynamically stable Acute blood loss anemia Hgb 9.5 Rh+ Class III obesity BMI 45 Elevated BPs Plan: Routine post-operative care. Watch BPs. Had elevated BPs before 20 wga, likely cHTN. Will observe closely - only mild range for last 24 hours. No si/sx pre-eclampsia. Encourage breast feeding. Encourage ambulation. VTE prophylaxis: SCDs and lovenox given multiple risk factors. Ferrous sulfate supplementation. Plan for discharge today, f/u as per Dr. Delgado's discharge instructions. Vitals - Labs Vital Signs - I&O Vital Signs Date Time Temp Pulse Resp B/P (MAP) Pulse Ox O2 Delivery O2 Flow Rate FiO2 06/12/16 00:00 97.5 100 17 139/76 97 Room Air 06/11/16 20:15 97.7 104 19 152/87 97 Room Air 06/11/16 16:00 98.6 98 20 06/11/16 12:00 98.9 98 20 144/88 98 Room Air 06/11/16 09:00 98 Room Air I & O 06/12/16 07:00 Intake Total 1212 ml Balance 1212 ml YANI FAN MD Jun 12, 2016 08:21
[2016-06-12] MEDS: FERROUS SULF 325 MG (IRON) TAB PO SCH (08:46)
[2016-06-12] MEDS: DOCUSATE SODIUM 100 MG (COLACE) CAP PO SCH (08:46)
[2016-06-12] MEDS: ENOXAPARIN 40 MG/0.4 ML (LOVENOX) SYR SC SCH (10:18)
[2016-06-12 12:00] VITALS: BP 152/91
[2016-06-12 14:15] VITALS: BP 152/91
--- NOTE | 2016-06-19 10:33 | DISCHARGE SUMMARY ---
DATE OF SERVICE: 06/12/2016 ADMISSION DIAGNOSES: 1. A 26-year-old G2, P1 at 40 weeks and 4 days gestation. 2. Postdates. 3. History of labor and delivery at 28 weeks. 4. History of cerclage earlier in this which was removed at 37 weeks. 5. GBS positive. 6. BMI of 45. DISCHARGE DIAGNOSES: 1. A 26-year-old G2, P1 at 40 weeks and 4 days gestation. 2. Postdates. 3. History of labor and delivery at 28 weeks. 4. History of cerclage earlier in this which was removed at 37 weeks. 5. GBS positive. 6. BMI of 45. 7. Acute blood loss anemia. 8. Postop day 2 primary low transverse caesarean section. ATTENDING PHYSICIAN: Dr. Myron Abad with coverage by Dr. Cathie Milan, [facility], women services. HOSPITAL COURSE: Please see admission H and P from 06/10/2016 for complete details pertaining to the patient's admission presentation, plan of care and induction method. Please see operative report from 06/11/2016 for complete details pertaining to the patient's operative procedure in detail as well as indications and the procedure detailed therein. Postoperative course of this patient was fairly routine. On postop day 1, she was ambulating and voiding freely. She was tolerating a regular diet. Pain was well controlled on oral pain medications. Her blood pressures were labile, anywhere from 115/[address] up to 166/70. This seemed to correlate with the patient ambulating and pain control. Postoperative hemoglobin was found to be 9.5 and the patient was started on ferrous sulfate supplementation. Her incision remained clean, dry and intact. On postop day 1, she was encouraged to ambulate. On postop day 2, the patient continued to do well. She is ambulating and voiding freely. Pain was well controlled on oral pain medications. Her vital signs remained stable with still a couple of labile blood pressures elevating in the 150s/80s to 90s but due to the patient's clinical stability, the decision was made to discharge the patient home on postop day 2. The patient was discharged with preeclampsia precautions as well as postoperative and precautions as well. All of her questions were answered pertaining to these. She was given prescriptions for the following medications: Colace 100 mg 1 p.o. b.i.d. and p.r.n. for constipation, #40. She was given [place] 5/325, 1 p.o. q. 4 to 6 hours as needed for pain, #50 and Motrin 600 mg 1 p.o. q. 6 hours as needed for pain, #60. Followup was made for 1 week and in 6 weeks in my office. The patient's discharge was facilitated at that point without further difficulty. Job ID: [id number] DocumentID: [id number] Dictated Date: 06/18/2016 10:18:30 [employer] Date: 06/19/2016 09:22:29 Dictated By: MYRON ABAD DO
== END 2016-06-12 13:45 | disposition home or self-care (01) | DRG 765 ==
LOC: LDRP 10:59
PROVIDERS: ADMIT Obstetrics & Gynecology; ATTEND Obstetrics & Gynecology
PROC: 3E0P05Z Introduction of Adhesion Barrier into Female Reproductive, Open Approach (ICD-10-PCS; 2016-06-10)
PROC: 10D00Z1 Extraction of Products of Conception, Low, Open Approach (ICD-10-PCS; principal; 2016-06-10 20:44)
DX: O48.0 Post-term pregnancy (principal); O33.9 Maternal care for disproportion, unspecified; O99.03 Anemia complicating the puerperium; D62 Acute posthemorrhagic anemia; O10.013 Pre-existing essential hypertension complicating pregnancy, third trimester; O99.213 Obesity complicating pregnancy, third trimester; E66.9 Obesity, unspecified; O99.820 Streptococcus B carrier state complicating pregnancy; O09.213 Supervision of pregnancy with history of pre-term labor, third trimester; Z68.42 Body mass index [BMI] 45.0-49.9, adult; Z3A.40 40 weeks gestation of pregnancy; Z37.0 Single live birth
CPT/HCPCS: 36415; 85025; 86850; 86900; 86901; 94664

== ENCOUNTER → 2016-08-02 | Outpatient (CLI) | payer BC, MEDICAID ==
[~2016-08-02] MED LIST changes: +DOCU100C37 PO; +HYDR-3812 PO; +IBUP-1773 PO
--- NOTE | 2016-08-02 09:34 | Diagnostic Imaging Report ---
PROCEDURE: US Gallbladder. TECHNIQUE: Multiple real-time grayscale images were obtained over the right upper quadrant in various projections. INDICATION: Right upper quadrant pain. FINDINGS: The pancreas is obscured by bowel gas. The liver is enlarged measuring 25 cm in craniocaudal diagonal dimension. There is no focal mass. The CBD is 3 mm in caliber, normal. The gallbladder demonstrates no stones or wall thickening. Color Doppler demonstrates normal hepatopetal flow in the portal vein. The right kidney is 11.8 cm in length with no hydronephrosis or focal lesion. Sonographic Vaz sign is reportedly negative. No fluid collection in the upper right abdomen. IMPRESSION: Hepatomegaly. Dictated by: Dictated on workstation # [id number]
== END | disposition home or self-care (01) ==
LOC: RAD 07:34
PROVIDERS: ATTEND Nurse Practitioner
DX: R10.11 Right upper quadrant pain (principal); R16.0 Hepatomegaly, not elsewhere classified
CPT/HCPCS: 76705

== ENCOUNTER → 2016-08-12 | Outpatient (CLI) | payer BC, MEDICAID ==
[~2016-08-12] MED LIST changes: +CATHETER FLUSH 10 ML SYR IV PRN
== END ==
DX: R10.11 Right upper quadrant pain (principal)

== ENCOUNTER 2017-09-15 05:45 | Outpatient (CLI) | payer BC, MEDICAID ==
[~2017-09-15] VITALS: Ht 167.6 cm; Wt 126.6 kg
[~2017-09-15 05:45] MED LIST changes: +ACHD5005 PO; -CATHETER FLUSH 10 ML SYR IV PRN; -HYDR-3812 PO; -INDO25CA PO; +INDO25CA15 PO
[2017-09-15] MEDS ORDERED: PREN-102 PO (10:41)
== END 2017-09-15 10:54 | disposition home or self-care (01) ==
LOC: PREOP 05:45
PROVIDERS: ATTEND Obstetrics & Gynecology
DX: Z01.818 Encounter for other preprocedural examination (principal)

== ENCOUNTER 2017-09-22 06:18 | Day surgery (SDC) | payer BC, MEDICAID ==
[2017-09-22] VITALS (8 sets, daily range): BP systolic 123–132; BP diastolic 52–91
[~2017-09-22] VITALS: Ht 167.6 cm; Wt 126.6 kg
--- OUTSIDE RECORDS SUMMARY | 2017-09-22 06:27 | XMS REPORT ---
Author Author JAGDISH LAGUERRE [facility] Address [address] [place] [address] Care Team Providers Care Blueprint Reproducer Name Role Phone JAGDISH LAGUERRE Unavailable PROBLEMS Type Condition ICD9-CM Code [id number] Code Onset Dates Condition Status SNOMED Code Problem Acute nasopharyngitis J00 Active [id number] ALLERGIES Substance Reaction Event Type Date Status Penicillin G Sodium Unknown Drug Allergy Feb, Active ENCOUNTERS Encounter Location Date Diagnosis [facility] [id number] [address] Feb, [facility] [id number] [id number] Feb, Acute nasopharyngitis J00 and BMI 40.0-44.9, adult Z68.41 [facility] [address] [id number], [place] [address] Oct, Visit for TB skin test Z11.1 IMMUNIZATIONS No Known Immunizations SOCIAL HISTORY Never Assessed REASON FOR VISIT flu like symptoms-KIMBERLYraphael TALLEY PLAN OF CARE Activity Details Follow Up prn Reason: VITAL SIGNS Height 66 in 2017-03-11 Weight 276.0 lbs 2017-03-11 Temperature 97.8 degrees Fahrenheit 2017-03-11 Heart Rate 87 bpm 2017-03-11 Respiratory Rate 18 2017-03-11 BMI 44.54 kg/m2 2017-03-11 Blood pressure systolic 162 mmHg 2017-03-11 Blood pressure diastolic 78 mmHg 2017-03-11 MEDICATIONS Unknown Medications RESULTS Name Result Date Reference Range INFLUENZA A & B (IN HOUSE) 2017-03-11 INFLUENZA A Negative INFLUENZA B Negative Control + Lot # [id number] Exp date 05/03/2019 PROCEDURES Procedure Date Ordered Result Body Site STREP A ASSAY W/OPTIC Mar 11, 2017 INFLUENZA ASSAY W/OPTIC Mar 11, 2017 INSTRUCTIONS MEDICATIONS ADMINISTERED No Known Medications MEDICAL (GENERAL) HISTORY Type Description Date Surgical History T and A 2001 Surgical History 2017
--- OUTSIDE RECORDS SUMMARY | 2017-09-22 06:27 | XMS REPORT ---
Author Author BETTY HILL Organization [facility] Address [address] [place] [address] Care Team Providers Care Screen Printing Inspector Name Role Phone BETTY HILL Unavailable PROBLEMS Type Condition ICD9-CM Code PWF45-OX Code Onset Dates Condition Status SNOMED Code Problem Acute nasopharyngitis J00 Active [id number] ALLERGIES No Information ENCOUNTERS Encounter Location Date Diagnosis [facility] [address] [facility] [id number] [address] Feb, [facility] [address] [facility] [id number] [id number] Feb, Acute nasopharyngitis J00 and BMI 40.0-44.9, adult Z68.41 [facility] [address] [facility] [place] [id number], [place] [address] Oct, Visit for TB skin test Z11.1 IMMUNIZATIONS No Known Immunizations SOCIAL HISTORY Never Assessed REASON FOR VISIT TB skin test JStrasserRN PLAN OF CARE Activity Details Follow Up 48-72 hours Reason: VITAL SIGNS MEDICATIONS Unknown Medications RESULTS No Results PROCEDURES Procedure Date Ordered Result Body Site TB INTRADERMAL 2016-10-26 Negative TB INTRADERMAL TEST Oct 26, 2016 INSTRUCTIONS MEDICATIONS ADMINISTERED No Known Medications MEDICAL (GENERAL) HISTORY Type Description Date Surgical History T and A 2001 Surgical History 2017
[2017-09-22] MEDS: LACTATED RINGERS 1,000 ML IV PRN ×2 (06:45→07:20)
[2017-09-22] MEDS ORDERED: SODIUM CHLORIDE IV ONE ×2 (06:45)
[2017-09-22] MEDS ORDERED: AZITHROMYCIN IV ONE ×2 (06:45)
[2017-09-22 06:47] LABS: BASOPHILS % (AUTO) 0 % (0-10); EOSINOPHILS # (AUTO) 0.2 10^3/uL (0.0-0.3); EOSINOPHILS % (AUTO) 2 % (0-10); HEMATOCRIT 35 % (35-52); HEMOGLOBIN 12.6 G/DL (11.5-16.0); LYMPHOCYTES # (AUTO) 3.1 X 10^3 (1.0-4.0); LYMPHOCYTES % (AUTO) 23 % (12-44); MEAN CORPUSCULAR HEMOGLOBIN 28 PG (25-34); MEAN CORPUSCULAR HGB CONC 36 G/DL (32-36); MEAN CORPUSCULAR VOLUME 78 FL (80-99); MEAN PLATELET VOLUME 9.5 FL (7.4-10.4); MONOCYTES # (AUTO) 0.9 X 10^3 (0.0-1.0); MONOCYTES % (AUTO) 7 % (0-12); NEUTROPHILS # (AUTO) 9.3 X 10^3 (1.8-7.8); NEUTROPHILS % (AUTO) 69 % (42-75); PLATELET COUNT 302 10^3/uL (130-400); RED BLOOD COUNT 4.53 10^6/uL (4.35-5.85); RED CELL DISTRIBUTION WIDTH 13.7 % (10.0-14.5); WHITE BLOOD COUNT 13.5 10^3/uL (4.3-11.0)
[2017-09-22] MEDS ORDERED: BUPIVACAINE 0.5% 30 ML (SENSORCAINE) VIAL ONE (06:52)
[2017-09-22] MEDS ORDERED: LIDOCAINE PF 2% 5 ML (XYLOCAINE) VIAL ONE (06:52)
[2017-09-22] MEDS ORDERED: CATHETER FLUSH 10 ML SYR IV PRN (07:00)
--- NOTE | 2017-09-22 07:02 | History & Physical-Surgical ---
HPO-Surgical History of Present Illness Chief Complaint: 27 yo with history of cervical insuffiency and delivery at 27 weeks. Diagnosis/Surgical Indication: CERVICAL INCOMPETENCE Procedure: MCDONALDS CERCLAGE Date of Surgery: Sep 22, 2017 Weight (Pounds): 279 Weight (Ounces): 2.0 Height (Feet): 5 Height (Inches): 6.00 Allergies and Home Medications Allergies Coded Allergies: Penicillins (Verified Allergy, Mild, HIVES/ITCHING, 09/15/17) Home Medications Vits #93/Iron Fum/FA 1 Each Tablet, 1 EACH PO DAILY, (Reported) Patient Home Medication List Home Medication List Reviewed: Yes Past Clhykcr-Oxloov-Pnnzxy Hx Patient Social History Marrital Status: Employed/Student: employed Alcohol Use: Denies Use Smoking Status: Former Smoker Former Smoker, Quit: Sep 15, 2013 Type Used: Cigarettes Recent Foreign Travel: No Contact w/other who traveled: No Recent Hopitalizations: No Recent Infectious Disease Expo: No Immunizations Up To Date Tetanus Booster (TDap): Unknown Pediatric: No Date of Influenza Vaccine: Dec 06, 2016 Seasonal Allergies Seasonal Allergies: No Surgeries Yes (kidney stone sx) Section, Tonsillectomy Respiratory No (asthma as a child) Cardiovascular No Neurological No Reproductive System Hx Reproductive Disorders: No Sexually Transmitted Disease: No HIV/AIDS: No Female Reproductive Disorders: Denies Genitourinary Yes Kidney Stones Gastrointestinal No Musculoskeletal No Endocrine History of Endocrine Disorders: No HEENT History of HEENT Disorders: No Loss of Vision: Bilateral Hearing Impairment: Denies Cancer No Psychosocial History of Psychiatric Problem: No Integumentary History of Skin or Integumenta: No Blood Transfusions History of Blood Disorders: No Adverse Reaction to a Blood Tr: No (N/A) Family Medical History Family Hx: Hypertension 19 MOTHER Exam Vital Signs Capillary Refill : Labs Laboratory Tests Test 09/22/17 06:35 Range/Units White Blood Count 13.5 H 4.3-11.0 10^3/uL Red Blood Count 4.53 4.35-5.85 10^6/uL Hemoglobin 12.6 11.5-16.0 G/DL Hematocrit 35 35-52 % Mean Corpuscular Volume 78 L 80-99 FL Mean Corpuscular Hemoglobin 28 25-34 PG Mean Corpuscular Hemoglobin Concent 36 32-36 G/DL Red Cell Distribution Width 13.7 10.0-14.5 % Platelet Count 302 130-400 10^3/uL Mean Platelet Volume 9.5 7.4-10.4 FL Neutrophils (%) (Auto) 69 42-75 % Lymphocytes (%) (Auto) 23 12-44 % Monocytes (%) (Auto) 7 0-12 % Eosinophils (%) (Auto) 2 0-10 % Basophils (%) (Auto) 0 0-10 % Neutrophils # (Auto) 9.3 H 1.8-7.8 X 10^3 Lymphocytes # (Auto) 3.1 1.0-4.0 X 10^3 Monocytes # (Auto) 0.9 0.0-1.0 X 10^3 Eosinophils # (Auto) 0.2 0.0-0.3 10^3/uL Basophils # (Auto) 0.0 0.0-0.1 10^3/uL General Appearance: Alert, Oriented X3 HEENT: Atraumatic Respiratory: Clear to Auscultation Cardiovascular: Regular Rate Abdominal: Normal Bowel Sounds Extremities: No Clubbing, No Cyanosis, No Edema, Normal Pulses, No Tenderness/ Swelling Skin: No Rashes, No Breakdown, No Significant Lesion Neuro: Normal Gait, Normal Speech, Strength at 5/5 X4 Ext Psych/Mental Status: Mental Status NL Assessment/Plan Assessment and Plan 27 yo @ 15 weeks gestation Cervical insufficiency BMI 45 P: Whipple's Cerclage Admission Diagnosis 27 yo @ 15 weeks gestation Cervical insufficiency BMI 45 Admission Status: Other (Same Day Surgery) MYRON ABAD DO Sep 22, 2017 7:02 am
[2017-09-22] MEDS ORDERED: INDO25OR2 PO (07:04)
[2017-09-22] MEDS ORDERED: HYDR-757 PO (07:04)
[2017-09-22] MEDS ORDERED: INDOMETHACIN 25 MG (INDOCIN) CAP PO ONE (07:45)
[2017-09-22] MEDS ORDERED: ONDANSETRON 4 MG/2 ML (SDV) Z0FRAN IVP PRN (08:00)
[2017-09-22] MEDS ORDERED: HYDROmorphone 1 MG/ML (DILAUDID) 1 ML SYRINGE IV PRN (08:00)
--- NOTE | 2017-09-22 09:21 | OPERATIVE REPORT ---
DATE OF SERVICE: PREOPERATIVE DIAGNOSES: 1. A 27-year-old female at 15 weeks gestation. 2. History of cervical insufficiency. POSTOPERATIVE DIAGNOSES: 1. A 27-year-old female at 15 weeks gestation. 2. History of cervical insufficiency. PROCEDURE: Whipple cerclage. SURGEON: Humberto Delgado DO. ANESTHESIA: Spinal. ESTIMATED BLOOD LOSS: Minimal. URINE OUTPUT: 100 mL clear drained prior to the start of the procedure. FLUIDS: 500 mL of lactated Ringer solution. FINDINGS: The heart rate 140s preoperatively and 135 postoperatively, a grossly normal appearing cervix and vaginal mucosa and external female genitalia. SPECIMENS SENT: None. INDICATIONS: This 27-year-old female was a patient that had returned to my care after previous ended in a term delivery of an following a Whipple cerclage. Her first ; however, resulted in a 28-week delivery due to pain less symptoms with dilation of the cervix. The patient ended up emergently delivering at [facility] and her infant spent approximately three months in the NICU. We reviewed the risk of cerclage this morning as she was well aware of, she had this done before. Risk of bleeding, risk of loss, rupture of membranes was all discussed with the patient after everything was discussed and consent was obtained and the patient was taken to the operating room. DESCRIPTION OF PROCEDURE: Once in the operating room, spinal analgesia was found to be adequate, placed in a dorsal lithotomy position, prepped and draped in a normal sterile fashion. A weighted speculum was inserted to the patient's vagina. A right angle retractor was used to visualize the cervix, which was grasped at the 12 o'clock position using a long Allis clamp. I then placed two separate Whipple cerclages using #1 Ethibond, stained green, one was placed more proximal and one was placed more distal in the cervix in typical Whipple cerclage fashion. There were four separate quadrants of the cervix that were included in the pursestring suture and the sutures are left at the 12 o'clock position with a loop after which there was no active bleeding noted from any of my dissection planes. The vagina was copiously irrigated and once again, there was no active bleeding noted. The patient tolerated the procedure well and was sent to recovery area in stable condition. heart tones after the procedure were 135. She did get 1000 mg of azithromycin intraoperatively for infection prophylaxis. Job ID: [id number] DocumentID: [id number] Dictated Date: 09/22/2017 08:19:28 [employer] Date: 09/22/2017 09:20:28 Dictated By: DO MARICARMEN LEE
--- NOTE | 2017-09-22 15:40 | Anesthesia-Regional Post-Op ---
Regional Patient Condition Mental Status: Alert, Oriented x3 Circulation: Same as Pre-Op Headache: Absent Sensation: Full Recovery Motor Block: Absent Post Op Complications Complications None Follow Up Care/Instructions Patient Instructions None needed. Anesthesia/Patient Condition Patient is doing well, no complaints, stable vital signs, no apparent adverse anesthesia problems. CHITRA ABRAMS DO Sep 22, 2017 15:40
== END 2017-09-22 12:25 | disposition home or self-care (01) ==
LOC: SDC 06:18
PROVIDERS: ATTEND Obstetrics & Gynecology
DX: O34.32 Maternal care for cervical incompetence, second trimester (principal); O99.512 Diseases of the respiratory system complicating pregnancy, second trimester; J45.909 Unspecified asthma, uncomplicated; O99.212 Obesity complicating pregnancy, second trimester; E66.01 Morbid (severe) obesity due to excess calories; Z68.42 Body mass index [BMI] 45.0-49.9, adult; Z3A.15 15 weeks gestation of pregnancy
CPT/HCPCS: 36415; 85025; 86850; 86900; 86901; 87081; 94664

== ENCOUNTER 2018-02-22 13:58 | Inpatient (IN) | payer BC, MEDICAID ==
[~2018-02-22] VITALS: Ht 167.6 cm; Wt 125.6 kg
[~2018-02-22 13:58] MED LIST changes: +HYDR-4226 PO; +INDO25OR2 PO
--- NOTE | 2018-02-22 14:00 | NUR ---
GT SIFUENTESJAMES Thompson presented to unit via AMBULATORY from OFFICE, accompanied by DR ABAD AND S/O, with c/o INCISIONAL TENDERNESS, PAIN. ROGERS SIFUENTES Donna weighed, gowned, voided, and to bed. EFHM and TOCO applied, VS taken. ROGERS SIFUENTES oriented to bed controls, call light, TV, heat, and A/C controls.
[2018-02-22 14:03] VITALS: BP 134/65
[2018-02-22] MEDS ORDERED: ceFAZolin 2 GM IV Premixed 50 ML ONE (15:18)
[2018-02-22] MEDS ORDERED: METOCLOPRAMIDE INJ 10 MG/2 ML (REGLAN) ONE (15:18)
[2018-02-22] MEDS ORDERED: FAMOTIDINE 20MG/2ML IV (PEPCID) ONE (15:18)
[2018-02-22] MEDS ORDERED: LACTATED RINGERS 1,000 ML IV ONE (15:18)
[2018-02-22] MEDS ORDERED: CITRIC ACID/SOB CIT (BICITRA) 30 ML UDC ONE (15:18)
[2018-02-22] MEDS ORDERED: LACTATED RINGERS 1,000 ML IV PRN (15:30)
[2018-02-22] MEDS ORDERED: CITRIC ACID/SOB CIT (BICITRA) 30 ML UDC PO ONE (15:30)
[2018-02-22] MEDS ORDERED: METOCLOPRAMIDE INJ 10 MG/2 ML (REGLAN) IV ONE (15:30)
[2018-02-22] MEDS ORDERED: FAMOTIDINE 20MG/2ML IV (PEPCID) IV ONE (15:30)
[2018-02-22 15:52] LABS: BASOPHILS % (AUTO) 0 % (0-10); EOSINOPHILS # (AUTO) 0.2 10^3/uL (0.0-0.3); EOSINOPHILS % (AUTO) 1 % (0-10); HEMATOCRIT 33 % (35-52); HEMOGLOBIN 11.5 G/DL (11.5-16.0); LYMPHOCYTES % (AUTO) 19 % (12-44); MEAN CORPUSCULAR HEMOGLOBIN 27 PG (25-34); MEAN CORPUSCULAR HGB CONC 35 G/DL (32-36); MEAN CORPUSCULAR VOLUME 79 FL (80-99); MEAN PLATELET VOLUME 9.4 FL (7.4-10.4); MONOCYTES # (AUTO) 1.1 X 10^3 (0.0-1.0); MONOCYTES % (AUTO) 7 % (0-12); NEUTROPHILS # (AUTO) 11.4 X 10^3 (1.8-7.8); NEUTROPHILS % (AUTO) 73 % (42-75); PLATELET COUNT 395 10^3/uL (130-400); RED BLOOD COUNT 4.22 10^6/uL (4.35-5.85); RED CELL DISTRIBUTION WIDTH 14.2 % (10.0-14.5); WHITE BLOOD COUNT 15.7 10^3/uL (4.3-11.0)
--- NOTE | 2018-02-22 16:04 | History & Physical-OB ---
OB - Chief Complaint & HPI Date/Time Date of Admission: Date of Admission: Feb 22, 2018 at 3:15 pm Date seen by a Provider: Feb 22, 2018 Time Seen by a Provider: 13:50 Chief Complaint/History OB-Reason for Admission/Chief: Section Hx : 3 Hx Para: 2 Expected Date of Delivery: Mar 15, 2018 Gestational Age in Weeks: 37 Gestational Age in Days: 0 Other reason for admission: Patient brought up from office after abdominal exam made her cry. She reports touching of the pelvis/lower abdomen, and movement feels like her insides are tearing. She denies vaginal bleeding. REports plenty of movement, has not slept more than an hour for the past week. Admission Nurse Assessment Rev: Yes History of Labs A pos Antibody neg RI RPR NR HBsAg NR GC neg HIV NR GBS neg Allergies and Home Medications Allergies Coded Allergies: Penicillins (Verified Allergy, Mild, HIVES/ITCHING, 09/15/17) Home Medications Vits #93/Iron Fum/FA 1 Each Tablet, 1 EACH PO DAILY, (Reported) Patient Home Medication List Home Medication List Reviewed: Yes OB - History Hx of Present Care: Yes Ultrasounds: Normal mid trimester US Obstetrical Complications: Other (Whipple cerclage placed at 15 weeks) Medical Complications: None Obstetrical History Hx : 3 Hx Para: 2 Hx Total # of Abortions (Spona: 0 Delivery History Hx Blood Disorders: No Adverse Rxn to Tranfusion: No (N/A) Patient Past Medical History Asthma, Nephrolithiasis (history of), BMI 45 Social History/Family History HIV/AIDS: No Recent Infectious Disease Expo: No Sexually Transmitted Disease: No Immunizations Hepatitis A: Yes Hepatitis B: Yes Tetanus Booster (TDap): Unknown Date of Influenza Vaccine: Dec 20, 2017 OB - Admission Exam Physical Exam HEENT: NCAT Heart: Rhythm Normal Lungs: Clear Abdomen: Other (tender suprapubicly bringing patient to tears) Reflexes: Normal Heart Rate: 130's Accelerations: Accelerations Present Decelerations: No Decelerations Short Term Variability: Present Product Safety Coordinator Variability: Average (6-25) Contractions on Admission: 6-10 Minutes Apart Intensity: Moderate Labs Laboratory Tests Test 02/22/18 15:30 Range/Units White Blood Count 15.7 H 4.3-11.0 10^3/uL Red Blood Count 4.22 L 4.35-5.85 10^6/uL Hemoglobin 11.5 11.5-16.0 G/DL Hematocrit 33 L 35-52 % Mean Corpuscular Volume 79 L 80-99 FL Mean Corpuscular Hemoglobin 27 25-34 PG Mean Corpuscular Hemoglobin Concent 35 32-36 G/DL Red Cell Distribution Width 14.2 10.0-14.5 % Platelet Count 395 130-400 10^3/uL Mean Platelet Volume 9.4 7.4-10.4 FL Neutrophils (%) (Auto) 73 42-75 % Lymphocytes (%) (Auto) 19 12-44 % Monocytes (%) (Auto) 7 0-12 % Eosinophils (%) (Auto) 1 0-10 % Basophils (%) (Auto) 0 0-10 % Neutrophils # (Auto) 11.4 H 1.8-7.8 X 10^3 Lymphocytes # (Auto) 3.0 1.0-4.0 X 10^3 Monocytes # (Auto) 1.1 H 0.0-1.0 X 10^3 Eosinophils # (Auto) 0.2 0.0-0.3 10^3/uL Basophils # (Auto) 0.0 0.0-0.1 10^3/uL OB - Assessment/Plan/Diagnosis Assessment Assessment: section Admission Dx 28 yo @ 37 weeks Concerns for uterine dihissence/rupture with suprapubic pelvic tearing pain Previous c/s Whipple Cerclage Hx of PTD at 28 weeks GBS neg BMI 44 Admission Status: Inpatient Order (span 2 midnights) Reason for Inpatient Admission: 28 yo @ 37 weeks Concerns for uterine dihissence/rupture with suprapubic pelvic tearing pain Previous c/s Whipple Cerclage Hx of PTD at 28 weeks GBS neg BMI 44 Plan Plan: Section MYRON ABAD DO Feb 22, 2018 4:04 pm
[2018-02-22 16:06] LABS: BAND NEUTROPHILS 0 %; BASOPHILS % (MANUAL) 0 %; EOSINOPHILS % (MANUAL) 0 %; LYMPHOCYTES % (MANUAL) 14 %; MONOCYTES % (MANUAL) 3 %; NEUTROPHILS % (MANUAL) 83 %; RBC MORPH NORMAL
[2018-02-22] MEDS ORDERED: fentaNYL INJECTION 100 MCG/2 ML AMP ONE (16:35)
[2018-02-22] MEDS ORDERED: LIDOCAINE PF 2% 5 ML (XYLOCAINE) VIAL ONE (16:35)
[2018-02-22] MEDS ORDERED: BUPIVACAINE SPINAL 0.75% (SENSORCAINE) 2 ML AMP ONE (16:37)
[2018-02-22] MEDS ORDERED: OXYTOCIN/NORMAL SALINE 500 ML IV SCH (16:54)
--- NOTE | 2018-02-22 16:56 | Discharge Inst-Women's Service ---
Discharge Inst-Women's Serv Depart Medication/Instructions New, Converted or Re-Newed RX: RX on Chart Final Diagnosis POD 2 RLTCS Consults/Follow Up Additional Follow Up: Yes Orders/Referrals Dr. Delgado in 7-10 days and in 6 weeks Activity Activity: Activity as Tolerated Driving Instructions: No Driving for 1 Week NO SMOKING: NO SMOKING Nothing Inside Vagina: No Douching, No [place], No Tampons Diet Discharge Diet: No Restrictions Symptoms to Report to : Bleeding Excessive, Pain Increased, Fever Over 101 Degrees F, Vaginal Bleeding Increase, Questions/Concerns For Any Problems or Questions: Contact Your Physician Skin/Wound Care Infection Signs and Symptoms: Increased Redness, Foul Odor of Wound, Increased Drainage, Skin Itchy or Has a Rash, Increased Swelling, Temperature Above 101 F Operative Area Clean and Dry: Keep Incision Clean/Dry Stitches/Pony/Dermabond: Dermabond, Care of Stitches Bathing Instructions: MYRON Parikh DO Feb 22, 2018 16:56
[2018-02-22] MEDS ORDERED: ACHD5005 PO (16:57)
[2018-02-22] MEDS ORDERED: DOCU100C37 PO (16:57)
[2018-02-22] MEDS ORDERED: IBUP-844 PO (16:57)
[2018-02-22] MEDS ORDERED: TETANUS,DIPTH,PERTUSS P/F (BOOSTRIX) 0.5 ML VIAL IM SCH (17:00)
[2018-02-22] MEDS ORDERED: HYDROmorphone 2 MG/ML VIAL (DILAUDID) IV PRN (17:00)
[2018-02-22] MEDS ORDERED: ONDANSETRON 4 MG/2 ML (SDV) Z0FRAN IVP PRN ×2 (17:00→18:15)
[2018-02-22] MEDS ORDERED: MEASLES,MUMPS,RUBELLA 1 EA INJ SC SCH (17:00)
--- NOTE | 2018-02-22 17:00 | Operative Report ---
Operative Report Date of Procedure/Surgery Feb 22, 2018 Surgeon (s) MYRON ABAD DO Health Inspector Food (s): Vivienne COMPUTATIONAL THEORY SCIENTIST Post-Operative Diagnosis same Procedure Performed RLTCS and removal osman cerclage x 2 Description of Procedure Anesthesia Type: Spinal Estimated blood loss (mL): 600 Specimen(s) collected/removed placenta Description of the Procedure UOP: 100 Fluid: 100 ml [id number] OPERATIVE REPORT IN DETAIL: Once in the operating room, spinal anesthesia was found to be adequate. Cerclage is removed x 2 using speculum and long scissors. She was placed in the supine position with leftward tilt, prepped and draped in normal sterile fashion. A timeout was performed. Anesthesia was tested. A Pfannenstiel skin incision was made through the previously existing scar using a knife and carried down to underlying fascia using Bovie cautery. The fascial incision was extended laterally using Bovie cautery. The superior aspect of fascial incision was then grasped with Swati clamps, tented up and dissected off the underlying rectus muscles. The inferior aspect of the fascial incision was then grasped with Swati clamps, tented upward and dissected off the underlying rectus muscles. Rectus muscles were dissected down the midline using sharp dissection with Metzenbaum scissors, which exposed the peritoneum, which I entered bluntly and extended using blunt traction. An Aniceto ring retractor was placed within the peritoneal incision, which offered excellent lateral sidewall retraction. I proceeded with making a low transverse incision through the vesicouterine peritoneum and bluntly dissected off the lower uterine segment, creating a bladder flap. I then proceeded with my myotomy until membranes were visualized, at which point I extended the uterine incision laterally and superiorly using bandage scissors. Amniotomy was performed using Allis clamp, clear fluid was noted. The uterine incision extended laterally and superiorly using bandage scissors. The infant was found in the vertex presentation. With gentle fundal pressure, the 's head was delivered through the incision where the nares and oropharynx were bulb suctioned. Anterior and posterior shoulder was delivered. was then brought out to the operative field where the cord was doubly clamped and cut and was handed off to the awaiting nurses who was there for delivery. Cord blood was collected. Three-vessel cord and placenta was delivered spontaneously thereafter. IV Pitocin was initiated to facilitate uterine contraction. Uterine fundus became firmer with bimanual massage. The uterus was then exteriorized and cleared of all endometrial clots and debris. I then closed the uterine incision using 0 Vicryl suture in running locked fashion. Second layer of imbricating 0 Monocryl was placed. Excellent hemostasis was noted after doing this. I then placed the uterus back within the pelvis and once again I evaluate all my planes of dissection, which seemed to be hemostatic. I copiously irrigated the pelvis using normal saline. Once again, no active bleeding is noted from any of my dissection planes. I placed Interceed antiadhesive over my low transverse incision. I proceeded with closing the peritoneum with 3-0 vicryl suture in running fashion. The rectus muscles were then reapproximated using 3-0 Vicryl suture in interrupted fashion. The fascia was reapproximated using 0 Vicryl suture in running fashion. The subcutaneous tissue was reapproximated using 3-0 plain in interrupted subcutaneous stitch and the skin was reapproximated using 4-0 Monocryl in a running subcuticular. Dermabond was applied to incision. Sterile dressings with adhesive white tape. The patient tolerated the procedure well and was taken to the recovery area in stable condition. Lap and sponge count was correct at the end of the procedure. Instrument count was correct as well. Two grams of Ancef were given preoperatively for infection prophylaxis. Findings of the Procedure Live female infant weight 6lbs 5oz APGARs 8/8 Allergies and Home Medications Allergies Coded Allergies: Penicillins (Verified Allergy, Mild, HIVES/ITCHING, 09/15/17) Home Medications Docusate Sodium 100 Mg Capsule, 100 MG PO BID PRN for CONSTIPATION-1ST LINE Prescribed by: MYRON ABAD on 02/22/18 165 Hydrocodone Bit/Acetaminophen 1 Tab Tab, 1 TAB PO Q4H PRN for PAIN-MODERATE Prescribed by: MYRON ABAD on 02/22/181656 Ibuprofen 600 Mg Tablet, 600 MG PO Q6H Prescribed by: MYRON ABAD on 02/22/181656 Vits #93/Iron Fum/FA 1 Each Tablet, 1 EACH PO DAILY, (Reported) Patient Home Medication List Home Medication List Reviewed: Yes MYRON ABAD DO Feb 22, 2018 17:00
[2018-02-22] MEDS ORDERED: PHENYLEPHRINE 100 MCG/ML 10 ML (ANESTHESIA) SYR ONE (17:11)
[2018-02-22] MEDS ORDERED: OXYTOCIN/NORMAL SALINE 1,000 ML IV ONE (17:20)
[2018-02-22] MEDS ORDERED: KETOROLAC 30 MG/ML VIAL ONE (17:37)
[2018-02-22] MEDS: KETOROLAC 30 MG/ML VIAL IVP SCH (17:45)
[2018-02-22] MEDS ORDERED: ROPIVACAINE 5MG/ML 30ML VIAL ONE (18:07)
[2018-02-22] MEDS ORDERED: HYDROmorphone 2 MG/ML VIAL (DILAUDID) IV ONE (18:15)
--- NOTE | 2018-02-22 18:50 | NUR ---
PT TRANSFERRED FROM - TO -[facility] VIA BED IN STABLE CONDITION ACC BY NOEMI, TOW BOAT CAPTAIN AND THIS RN.
[2018-02-22 19:00] VITALS: BP 126/80
--- NOTE | 2018-02-22 19:00 | NUR ---
REPORT RECEIVED FROM STEPHIE FRANKLIN RN. SCDS CONNECTED. IV TUBING CONVERTED TO PUMP TUBING. LR INFUSING @ 125 ML/HR/PUMP. VS OBTAINED. TO PT'S BEDSIDE. PLACED SKIN TO SKIN PER Brigid SLATER RN. FRESH ICE WATER PROVIDED. CALL LIGHT WITHIN REACH.
--- NOTE | 2018-02-22 19:30 | NUR ---
REPORT TO Jennifer PAUL RN.
[2018-02-22 20:20] VITALS: BP 126/67
[2018-02-22] MEDS ORDERED: guaiFENesin/DM (ROBITUSSIN DM) 10 ML UDC PO PRN (21:15)
[2018-02-22] MEDS: DOCUSATE SODIUM 100 MG (COLACE) CAP PO SCH (21:59)
[2018-02-22] MEDS: HYDROcodone/APAP 5 MG/325 MG (LORTAB) TAB PO PRN (22:01)
[2018-02-22] MEDS: CATHETER FLUSH 10 ML SYR IV SCH (22:17)
[2018-02-23] MEDS: CATHETER FLUSH 10 ML SYR IV SCH
[2018-02-23] MEDS ORDERED: IBUPROFEN 600 MG (MOTRIN) TAB PO ONE ×3 (00:01→11:37)
[2018-02-23 00:05] VITALS: BP 122/68
[2018-02-23] MEDS: IBUPROFEN 600 MG (MOTRIN) TAB PO SCH ×3 (00:05→18:52)
[2018-02-23] MEDS: KETOROLAC 30 MG/ML VIAL IVP SCH ×4 (00:10→23:39)
[2018-02-23 04:30] VITALS: BP 130/79
[2018-02-23 05:56] LABS: BASOPHILS % (AUTO) 0 % (0-10); EOSINOPHILS # (AUTO) 0.2 10^3/uL (0.0-0.3); EOSINOPHILS % (AUTO) 1 % (0-10); HEMATOCRIT 29 % (35-52); HEMOGLOBIN 10.1 G/DL (11.5-16.0); LYMPHOCYTES # (AUTO) 3.4 X 10^3 (1.0-4.0); LYMPHOCYTES % (AUTO) 21 % (12-44); MEAN CORPUSCULAR HEMOGLOBIN 27 PG (25-34); MEAN CORPUSCULAR HGB CONC 35 G/DL (32-36); MEAN CORPUSCULAR VOLUME 79 FL (80-99); MEAN PLATELET VOLUME 9.5 FL (7.4-10.4); MONOCYTES # (AUTO) 1.2 X 10^3 (0.0-1.0); MONOCYTES % (AUTO) 7 % (0-12); NEUTROPHILS # (AUTO) 11.4 X 10^3 (1.8-7.8); NEUTROPHILS % (AUTO) 71 % (42-75); PLATELET COUNT 339 10^3/uL (130-400); RED BLOOD COUNT 3.68 10^6/uL (4.35-5.85); WHITE BLOOD COUNT 16.1 10^3/uL (4.3-11.0)
--- NOTE | 2018-02-23 07:45 | Anesthesia-Regional Post-Op ---
Regional Patient Condition Mental Status: Alert, Oriented x3 Circulation: Same as Pre-Op Headache: Absent Sensation: Full Recovery Motor Block: Absent Post Op Complications Complications None Follow Up Care/Instructions Patient Instructions None needed. Anesthesia/Patient Condition Patient is doing well, no complaints, stable vital signs, no apparent adverse anesthesia problems. No complications reported per nursing. MICAH KELLY CRNA Feb 23, 2018 07:45
[2018-02-23 07:50] VITALS: BP 132/64
--- NOTE | 2018-02-23 07:55 | NUR ---
THIS RN TO BEDSIDE, PT IN BED, SITS UP IN BED. VS OBTAINED. INITIAL SHIFT ASSESSMENT COMPLETED; SEE INTERVENTION FOR FURTHER. FLUFF GAUZE PLACED OVER INCISION. MORE PADS AND SOAP PLACED INTO THE BATHROOM, SHOWER ALREADY SET UP. PT DENIES ANY FURTHER NEEDS AT THIS TIME. CALL LIGHT WITHIN REACH.
--- NOTE | 2018-02-23 08:30 | NUR ---
DR. ABAD HERE TO SEE PT.
--- NOTE | 2018-02-23 09:04 | Postpartum Progress Note ---
Note Note Day # 1 Subjective: Patient is without complaints. Ambulating, voiding. Tolerating a regular diet without nausea or vomiting. Normal lochia. Pain is well controlled with oral pain medications. Objective: Physical Exam: General - Alert and oriented, no apparent distress Abdomen - Soft, appropriately tender to palpation, non-distended, fundus firm at umbilicus Extremities - no edema, negative Sanjuanita's bilaterally Incision- c/d/i Assessment: POD 1 RLTCS w Whipple cerclage removal Acute blood loss anemia Plan: Routine care. Encourage breast feeding. Encourage ambulation. Ferrous sulfate supplementation. Plan for discharge tomorrow Vitals - Labs Vital Signs - I&O Vital Signs Date Time Temp Pulse Resp B/P (MAP) Pulse Ox O2 Delivery O2 Flow Rate FiO2 02/23/18 04:30 97.8 94 18 130/79 (96) 98 Room Air 02/23/18 00:05 98.0 91 18 122/68 (86) 99 Room Air 02/22/18 20:20 98.3 96 18 126/67 (86) 97 Room Air 02/22/18 19:00 97.7 85 18 126/80 (95) 100 Room Air 02/22/18 14:03 98.5 100 18 134/65 (88) Room Air I & O 02/23/18 07:00 Intake Total 50 ml Output Total 100 ml Balance -50 ml Labs Laboratory Tests 02/22/18 15:30: White Blood Count 15.7H, Red Blood Count 4.22L, Hemoglobin 11.5, Hematocrit 33L , Mean Corpuscular Volume 79L, Mean Corpuscular Hemoglobin 27, Mean Corpuscular Hemoglobin Concent 35, Red Cell Distribution Width 14.2, Platelet Count 395, Mean Platelet Volume 9.4, Neutrophils (%) (Auto) 73, Lymphocytes (%) (Auto) 19, Monocytes (%) (Auto) 7, Eosinophils (%) (Auto) 1, Basophils (%) (Auto) 0, Neutrophils # (Auto) 11.4H, Lymphocytes # (Auto) 3.0, Monocytes # (Auto) 1.1H, Eosinophils # (Auto) 0.2, Basophils # (Auto) 0.0, Neutrophils % (Manual) 83, Lymphocytes % (Manual) 14, Monocytes % (Manual) 3, Eosinophils % (Manual) 0, Basophils % (Manual) 0, Band Neutrophils 0, Blood Morphology Comment NORMAL 02/23/18 05:35: White Blood Count 16.1H, Red Blood Count 3.68L, Hemoglobin 10.1L, Hematocrit 29L , Mean Corpuscular Volume 79L, Mean Corpuscular Hemoglobin 27, Mean Corpuscular Hemoglobin Concent 35, Red Cell Distribution Width 14.0, Platelet Count 339, Mean Platelet Volume 9.5, Neutrophils (%) (Auto) 71, Lymphocytes (%) (Auto) 21, Monocytes (%) (Auto) 7, Eosinophils (%) (Auto) 1, Basophils (%) (Auto) 0, Neutrophils # (Auto) 11.4H, Lymphocytes # (Auto) 3.4, Monocytes # (Auto) 1.2H, Eosinophils # (Auto) 0.2, Basophils # (Auto) 0.0 MYRON ABAD DO Feb 23, 2018 09:04
--- NOTE | 2018-02-23 10:25 | NUR ---
THIS RN TO BEDSIDE, PT REQUESTING BOTTLES FOR . SUPPLIES PROVIDED AND PT IS PREPPING TO FEED. NO FURTHER NEEDS VOICED.
[2018-02-23 11:42] VITALS: BP 116/58
[2018-02-23] MEDS: DOCUSATE SODIUM 100 MG (COLACE) CAP PO SCH ×2 (11:43→21:55)
--- NOTE | 2018-02-23 13:00 | NUR ---
PT SITTING UP IN BED, TENDING TO INFANT. DENIES ANY NEEDS AT THIS TIME.
--- NOTE | 2018-02-23 14:30 | NUR ---
PT UP IN HALLWAYS, AMBULATING.
[2018-02-23 16:06] VITALS: BP 139/75
[2018-02-23] MEDS: HYDROcodone/APAP 5 MG/325 MG (LORTAB) TAB PO PRN (16:07)
--- NOTE | 2018-02-23 16:07 | NUR ---
PT UP IN BED. VS OBTAINED. PT RATING PAIN 5/10. MEDS OFFERED, PT WOULD LIKE TO TAKE. MED GIVEN; SEE EMAR FOR FURTHER. NO NEEDS VOICED. CALL LIGHT WITHIN REACH. S/O SLEEPING AT THE BEDSIDE.
--- NOTE | 2018-02-23 18:55 | NUR ---
THIS RN TO BEDSIDE, ROUTINE MOTRIN GIVEN PO; SEE EMAR FOR FURTHER. PT REQUESTING MORE PADS AND FORMULA. SUPPLIES PROVIDED. STORK TABLE REMOVED FROM TABLE. PT DENIES ANY FURTHER NEEDS AT THIS TIME. VISITORS AT THE BEDSIDE. CALL LIGHT WITHIN REACH.
--- NOTE | 2018-02-23 19:15 | NUR ---
REPORT TO Jennifer PAUL RN.
[2018-02-23 21:55] VITALS: BP 127/82
[2018-02-24] MEDS: IBUPROFEN 600 MG (MOTRIN) TAB PO SCH ×4 (01:21→17:59)
[2018-02-24 05:05] VITALS: BP 131/68
[2018-02-24 08:28] VITALS: BP 149/81
[2018-02-24] MEDS: DOCUSATE SODIUM 100 MG (COLACE) CAP PO SCH ×2 (08:29→20:12)
--- NOTE | 2018-02-24 08:30 | NUR ---
Assessment completed at bedside. VSS. No questions or concerns voiced by pt. at this time. Call light within reach. Will continue to monitor.
[2018-02-24 12:23] VITALS: BP 149/85
--- NOTE | 2018-02-24 13:56 | Postpartum Progress Note ---
Post Op Post-operative Day #2 s/p CS Subjective: Patient is without complaints. Ambulating, voiding after alvarado removed. Tolerating a regular diet without nausea or vomiting. Normal lochia. Pain is well controlled with oral pain medications. Passing flatus. [] feeding. [] Objective: 02/24/18 02/24/18 02/24/18 05:05 08:28 12:23 Temp 98.1 98.3 98.1 Pulse 96 95 96 Resp 18 18 16 B/P (MAP) 131/68 (89) 149/81 (103) 149/85 (106) Pulse Ox 98 98 98 O2 Delivery Room Air Room Air Room Air Physical Exam: General - Alert and oriented, no apparent distress Abdomen - Soft, appropriately tender to palpation, non-distended, fundus firm at umbilicus Incision - clean, dry and intact; no erythema or induration, no drainage Extremities - no edema, negative Sanjuanita's bilaterally Inc C/d/i Assessment: 1. post-operative day # 2 , status post RLTCS. Recovering well, hemodynamically stable Acute blood loss anemia [] Plan: Routine post-operative care. Encourage breast feeding. Encourage ambulation. VTE prophylaxis: SCDs. Ferrous sulfate supplementation. Plan for discharge [] Vitals - Labs Vital Signs - I&O Vital Signs Date Time Temp Pulse Resp B/P (MAP) Pulse Ox O2 Delivery O2 Flow Rate FiO2 02/24/18 12:23 98.1 96 16 149/85 (106) 98 Room Air 02/24/18 08:28 98.3 95 18 149/81 (103) 98 Room Air 02/24/18 05:05 98.1 96 18 131/68 (89) 98 Room Air 02/23/18 21:55 97.8 100 18 127/82 (97) 98 Room Air 02/23/18 16:06 98.4 94 18 139/75 (96) 98 Room Air WILLIAM BULLARD DO Feb 24, 2018 13:56
--- NOTE | 2018-02-24 14:30 | NUR ---
Dr. Arguelles here to see pt.
[2018-02-24 18:01] VITALS: BP 149/82
[2018-02-24] MEDS: HYDROcodone/APAP 5 MG/325 MG (LORTAB) TAB PO PRN (20:12)
[2018-02-24 20:30] VITALS: BP 142/71
[2018-02-25 00:30] VITALS: BP 112/73
[2018-02-25] MEDS: IBUPROFEN 600 MG (MOTRIN) TAB PO SCH ×3 (01:03→12:03)
[2018-02-25] MEDS: HYDROcodone/APAP 5 MG/325 MG (LORTAB) TAB PO PRN (01:03)
[2018-02-25 06:32] VITALS: BP 129/73
--- NOTE | 2018-02-25 07:19 | NUR ---
Report given to Nan GRECO
[2018-02-25 09:20] VITALS: BP 149/79
[2018-02-25] MEDS: DOCUSATE SODIUM 100 MG (COLACE) CAP PO SCH (09:20)
--- NOTE | 2018-02-25 09:20 | NUR ---
Initial shift assessment completed, see interventions for further. POC reviewed, states understanding.
--- NOTE | 2018-02-25 09:27 | Postpartum Progress Note ---
Post Op Post-operative Day #3 s/p RLTCS Subjective: Patient is without complaints. Ambulating, voiding after alvarado removed. Tolerating a regular diet without nausea or vomiting. Normal lochia. Pain is well controlled with oral pain medications. Passing flatus. Breast feeding. Objective: 02/25/18 02/25/18 00:30 06:32 Temp 97.9 98.4 Pulse 102 90 Resp 18 18 B/P (MAP) 112/73 (86) 129/73 (91) Pulse Ox 100 96 Physical Exam: General - Alert and oriented, no apparent distress Abdomen - Soft, appropriately tender to palpation, non-distended, fundus firm at umbilicus Incision - clean, dry and intact; no erythema or induration, no drainage Extremities - no edema, negative Sanjuanita's bilaterally Assessment: 1. post-operative day # 3, status post []. Recovering well, hemodynamically stable Acute blood loss anemia [] Plan: Routine post-operative care. Encourage breast feeding. Encourage ambulation. VTE prophylaxis: SCDs. Ferrous sulfate supplementation. Plan for discharge [] Vitals - Labs Vital Signs - I&O Vital Signs Date Time Temp Pulse Resp B/P (MAP) Pulse Ox O2 Delivery O2 Flow Rate FiO2 02/25/18 06:32 98.4 90 18 129/73 (91) 96 02/25/18 00:30 97.9 102 18 112/73 (86) 100 02/24/18 20:30 97.4 102 18 142/71 (94) 97 02/24/18 18:01 98.5 93 16 149/82 (104) 99 Room Air 02/24/18 12:23 98.1 96 16 149/85 (106) 98 Room Air WILLIAM BULLARD DO Feb 25, 2018 09:27
--- NOTE | 2018-02-25 12:09 | NUR ---
Dismissal instructions given, verbalizes understanding. reviewed dismissal Rx's. instructed pt to schedule follow up appointments. signature page signed, placed on chart.
--- NOTE | 2018-02-25 12:50 | NUR ---
pt ambulated to private vehicle with staff, s/o and @ side. secured in rear facing car seat. pt stable with no sx's of distress noted.
== END 2018-02-25 12:50 | disposition home or self-care (01) | DRG 787 ==
LOC: WSo 13:58 → LDRP 14:01 → WSo 15:14 → LDRP 15:15
PROVIDERS: ADMIT Obstetrics & Gynecology; ATTEND Obstetrics & Gynecology
PROC: 0UCC0ZZ Extirpation of Matter from Cervix, Open Approach (ICD-10-PCS; 2018-02-22)
PROC: 10D00Z1 Extraction of Products of Conception, Low, Open Approach (ICD-10-PCS; principal; 2018-02-22 16:46)
DX: O34.33 Maternal care for cervical incompetence, third trimester (principal); O34.211 Maternal care for low transverse scar from previous cesarean delivery; O90.81 Anemia of the puerperium; D62 Acute posthemorrhagic anemia; Z3A.37 37 weeks gestation of pregnancy; Z88.0 Allergy status to penicillin; Z37.0 Single live birth
CPT/HCPCS: 36415; 85007; 85025; 85027; 86850; 86900; 86901; 88307; 94664

== ENCOUNTER 2021-01-22 17:42 | Emergency (ER) | payer MEDICAID ==
[~2021-01-22] VITALS: Ht 167.7 cm; Wt 111.1 kg
[~2021-01-22 17:42] MED LIST changes: +IBUP-844 PO; -INDO25CA15 PO; +INDO25CA99 PO
--- NOTE | 2021-01-22 18:50 | ED Lower Extremity ---
General Chief Complaint: Lower Extremity Stated Complaint: L ANKLE INJ Nursing Triage Note: PT TO TRIAGE BY WHEELCHAIR WITH COMPLAINT OF LEFT ANKLE PAIN. STATES WAS WALKING DOWN STEPS AND TRIPPED, LANDING ON LEFT ANKLE. Source: patient Exam Limitations: no limitations History of Present Illness Date Seen by Provider: Jan 22, 2021 Time Seen by Provider: 18:48 Initial Comments To ER by private vehicle with reports of left lateral ankle and foot pain and swelling after she rolled it while walking earlier today. She tripped down some steps. She has been unable to bear weight on the left ankle since that happened. Onset: just prior to arrival Severity: moderate Pain/Injury Location: left ankle Method of Injury: fell, twisted Modifying Factors: Worse With Movement Allergies and Home Medications Allergies Coded Allergies: Penicillins (Verified Allergy, Mild, HIVES/ITCHING, 09/15/17) Patient Home Medication List Home Medication List Reviewed: Yes Docusate Sodium (Docusate Sodium) 100 Mg Capsule, 100 MG PO BID PRN for CONSTIPATION-1ST LINE Prescribed by: MYRON ABAD on 02/22/18 165 Hydrocodone Bit/Acetaminophen (Lortab 5 Mg Tablet) 1 Tab Tab, 1 TAB PO Q4H PRN for PAIN-MODERATE Prescribed by: MYRON ABAD on 02/22/18 165 Ibuprofen (Ibu) 600 Mg Tablet, 600 MG PO Q6H Prescribed by: MYRON ABAD on 02/22/18 1657 Vits #93/Iron Fum/FA ( Formula Tablet) 1 Each Tablet, 1 EACH PO DAILY, (Reported) Entered as Reported by: ROBERT RGIMM on 09/15/17 1041 Review of Systems Constitutional: see HPI EENTM: see HPI Respiratory: no symptoms reported Cardiovascular: no symptoms reported Genitourinary: no symptoms reported Musculoskeletal: see HPI Skin: no symptoms reported Psychiatric/Neurological: No Symptoms Reported Past Dvgtubf-[id number]-Nmuzvp Hx Patient Social History Tobacco Use?: Yes Tobacco type used: Cigarettes Smoking Status: Current Everyday Smoker Substance use?: No Alcohol Use?: Yes Alcohol Frequency: Once in a while Pt feels they are or have been: No Immunizations Up To Date Tetanus Booster (TDap): Unknown PED Vaccines UTD: Yes Influenza Vaccine Up-to-Date: Yes; Up-to-Date Seasonal Allergies Seasonal Allergies: Yes Past Medical History Surgeries: Yes (KIDNEY STONE, CERCLAGE X2) Section, Tonsillectomy Respiratory: Yes (asthma as a child) Asthma Cardiac: No Neurological: No Reproductive Disorders: No Female Reproductive Disorders: Denies Sexually Transmitted Disease: No HIV/AIDS: No Genitourinary: Yes Kidney Stones Gastrointestinal: No Musculoskeletal: No Endocrine: No HEENT: No Loss of Vision: Bilateral Hearing Impairment: Denies Cancer: No Psychosocial: No Integumentary: No Blood Disorders: No Adverse Reaction/Blood Tranf: No Family Medical History Diabetes mellitus 19 MOTHER Hypertension 19 MOTHER Physical Exam Vital Signs Vital Signs - First Documented 01/22/21 18:04 Pulse 109 Resp 16 B/P (MAP) 165/101 (122) Pulse Ox 99 O2 Delivery Room Air Capillary Refill : Less Than 3 Seconds Height, Weight, BMI Height: 5'6.00" Weight: 277lbs. 0.0oz. 125.726507xn; 39.00 BMI Method:Stated General Appearance: WD/WN, no apparent distress Neck: non-tender, full range of motion Respiratory: no respiratory distress, no accessory muscle use Hips: bilateral hip non-tender, bilateral hip normal inspection, bilateral hip normal range of motion Legs: bilateral leg non-tender, bilateral leg normal inspection, bilateral leg normal range of motion Knees: bilateral knee non-tender, bilateral knee normal inspection, bilateral knee normal range of motion Ankles: left ankle pain, left ankle soft tissue tenderness, left ankle swelling Feet: left foot pain, left foot soft tissue tenderness, left foot swelling (Swelling and ecchymosis to the left proximal and lateral foot.) Neurologic/Psychiatric: alert, normal mood/affect, oriented x 3 Skin: normal color, warm/dry Progress/Results/Core Measures Results/Orders My Orders Orders - MAINOR SHAIKH APRN Foot, Left, 3 Views (01/22/21 18:47) Ankle, Left, 3 Views (01/22/21 18:47) Ct Extremity Lower Left Wo (01/22/21 19:46) Ibuprofen Tablet (Motrin Tablet) (01/22/21 20:00) Medications Given in ED Current Medications Medications Dose Ordered Sig/Jacqueline Route Start Time Stop Time Status Last Admin Dose Admin Ibuprofen 800 mg ONCE ONCE PO 01/22/21 20:00 01/22/21 20:01 DC 01/22/21 20:00 800 MG Vital Signs/I&O 01/22/21 18:04 Pulse 109 Resp 16 B/P (MAP) 165/101 (122) Pulse Ox 99 O2 Delivery Room Air Blood Pressure Mean: 122 Departure Communication (Admissions) Family Conversation 2030-placed in a posterior short leg splint using 4 inch Ortho-Glass. Also given crutches. Impression Primary Impression: Sprain and strain of ankle Disposition: HOME, SELF-CARE Condition: Stable Departure-Patient Inst. Decision time for Depature: 20:31 Referrals: [facility] (PCP) Primary Care Physician RENE WEST APRN (Family) Primary Care Physician BRITANY REIS MD,RENAN PORTER,MYRON Packer MD Patient Instructions: Foot Fracture (DC) Add. Discharge Instructions: 1. Keep the splint on at all times until you follow-up with orthopedics. Call orthopedic surgeon of your choosing tomorrow to make an appointment to be seen within the next 1 to 2 weeks. Keep the splint clean and dry, this will mean placing a trash bag over it and taping around the open end of the trash bag to keep it dry while you shower. Elevate the foot is much as possible. Tylenol and ibuprofen for pain. If that is not adequate for pain control then take the prescribed pain medication. All discharge instructions reviewed with patient and/or family. Voiced understanding. MAINOR SHAIKH APRN Jan 22, 2021 18:49
--- NOTE | 2021-01-22 19:23 | Diagnostic Imaging Report ---
INDICATION: Left ankle injury 3 views of left ankle show no fracture, dislocation or other acute abnormalities. IMPRESSION: Negative left ankle Dictated by: Dictated on workstation # [id number]
--- NOTE | 2021-01-22 19:33 | Diagnostic Imaging Report ---
HISTORY: Pain in the left foot after fall TECHNIQUE: 3 views of the left foot COMPARISON: None FINDINGS: There is subtle cortical irregularity at the 2nd and 3rd metatarsal bases, concerning for nondisplaced fractures. There appears to be a small chip fracture at the anterior lateral aspect of the calcaneus. Alignment otherwise appears normal and joint spaces are preserved. IMPRESSION: 1. Small chip fracture at the anterior lateral aspect of the left calcaneus. 2. Suspected nondisplaced fractures at the 2nd and 3rd metatarsal bases. CT could be considered to further evaluate. Dictated by: Dictated on workstation # [id number]
[2021-01-22] MEDS ORDERED: IBUPROFEN 800 MG (MOTRIN) TAB PO ONE (20:00)
--- NOTE | 2021-01-22 20:11 | Diagnostic Imaging Report ---
PROCEDURE: CT left lower extremity without contrast. TECHNIQUE: Multiple contiguous axial images were obtained through the left lower extremity without the use of intravenous contrast. Sagittal and coronal reformations were then performed. Auto Exposure Controls were utilized during the CT exam to meet ALARA standards for radiation dose reduction. INDICATION: Left foot fractures, injury COMPARISON: Radiographs from the same day. FINDINGS: There is a nondisplaced fracture at the medial aspect of the cuboid. There is a small chip fracture at the plantar lateral aspect of the anterior calcaneus. The Lisfranc alignment appears normal. No fractures are seen at the metatarsal bases. No muscular atrophy is seen. No fluid collections are identified. The tendons and ligaments are not well evaluated by CT. There may be a split tear of the peroneus brevis. IMPRESSION: 1. Nondisplaced fracture of the medial left cuboid. Mildly displaced chip fracture at the plantar lateral anterior calcaneus. 2. Suspect a short segment split tear of the peroneus brevis tendon. Dictated by: Dictated on workstation # [id number]
[2021-01-22 20:57] VITALS: BP 148/98
== END 2021-01-22 20:57 | disposition home or self-care (01) ==
LOC: EDUNIT# 17:42 → ER 17:44
DX: S93.402A Sprain of unspecified ligament of left ankle, initial encounter (principal); J45.909 Unspecified asthma, uncomplicated; F17.210 Nicotine dependence, cigarettes, uncomplicated; X50.0XXA Overexertion from strenuous movement or load, initial encounter
CPT/HCPCS: 29515; 73610; 73630; 73700

== ENCOUNTER 2022-05-13 05:34 | Outpatient (CLI) | payer OTHER, MEDICAID ==
[~2022-05-13] VITALS: Ht 167.6 cm; Wt 97.5 kg
[2022-05-13] MEDS ORDERED: BUPR300T43 PO (14:14)
[2022-05-13] MEDS ORDERED: LISI10TA25 PO (14:14)
[2022-05-13] MEDS ORDERED: SEMA1PEN3 SQ (14:14)
== END 2022-05-13 14:27 | disposition home or self-care (01) ==
LOC: PREOP 05:34
PROVIDERS: ATTEND Surgery
DX: Z01.818 Encounter for other preprocedural examination (principal)

== ENCOUNTER 2022-05-20 09:12 | Day surgery (SDC) | payer OTHER, MEDICAID ==
[2022-05-20] VITALS (11 sets, daily range): BP systolic 123–159; BP diastolic 65–98
[~2022-05-20] VITALS: Ht 175.3 cm; Wt 97.5 kg
[~2022-05-20 09:12] MED LIST changes: +BUPR300T43 PO; +LISI10TA25 PO; +SEMA1PEN3 SQ
[2022-05-20] MEDS ORDERED: BUP/EPI 0.5% 1:200,000 (SENSORCAINE) 30 ML VIAL ONE (09:17)
[2022-05-20] MEDS ORDERED: LIDOCAINE PF 2% 5 ML (XYLOCAINE) VIAL ONE (09:24)
[2022-05-20] MEDS ORDERED: proPOfol 200 MG/20 ML (DIPRIVAN) VIAL IV ONE (09:24)
[2022-05-20] MEDS ORDERED: ONDANSETRON 4 MG/2 ML (SDV) Z0FRAN ONE (09:24)
[2022-05-20] MEDS ORDERED: SEVOFLURANE (ULTANE) 15 ML INHAL SOLN ONE ×2 (09:24→10:48)
[2022-05-20] MEDS ORDERED: fentaNYL INJ 100 MCG/2 ML AMP ONE (09:24)
[2022-05-20] MEDS ORDERED: ROCURONIUM 50 MG/5 ML (ZEMURON) VIAL IV ONE (09:24)
[2022-05-20] MEDS ORDERED: MIDAZOLAM 2 MG/2 ML (VERSED) VIAL ONE (09:25)
[2022-05-20] MEDS: LACTATED RINGERS 1,000 ML IV PRN ×2 (09:35→10:51)
[2022-05-20] MEDS ORDERED: CLINDAMYCIN 600 MG/50 ML IVPB 50 ML IV ONE ×2 (09:45)
--- NOTE | 2022-05-20 09:47 | Progress Note-Pre Operative ---
Pre-Operative Progress Note Date H&P Reviewed: May 20, 2022 Time H&P Reviewed: 09:45 History & Physical: H&P Reviewed, Patient Examed, No changes noted Pre-Operative Diagnosis: Cholelithiasis, RUQ pain ZAIRE BRAUN DO May 20, 2022 09:47
[2022-05-20] MEDS ORDERED: BUP/EPI 0.5% 1:200,000 (SENSORCAINE) 30 ML VIAL INJ ONE (10:20)
[2022-05-20] MEDS ORDERED: IOHEXOL 300 MG/ML 100 ML (OMNIPAQUE 300) VIAL INJ ONE (10:21)
[2022-05-20] MEDS ORDERED: NEOSTIGMINE (BLOXIVERZ ) 1 MG/1ML 10 ML VIAL ONE (10:47)
[2022-05-20] MEDS ORDERED: GLYCOPYRROLATE 0.2 MG/ML (ROBINUL) 2 ML VIAL ONE (10:47)
[2022-05-20] MEDS ORDERED: DOCU-143 PO (10:55)
[2022-05-20] MEDS ORDERED: ACHD5005 PO (10:55)
--- NOTE | 2022-05-20 10:56 | Discharge Inst-Simple/Standard ---
Discharge Inst-Standard Discharge Medications New, Converted or Re-Newed RX: Transmitted to Pharmacy Patient Instructions/Follow Up Plan of Care/Instructions/FU: 2 weeks Walter Activity as Tolerated: No Discharge Diet: Regular Diet Other Inst to Patient Follow up Appt: Make appointment for 2 weeks. Instructions: No lifting greater than 10 pounds. No strenuous activity. May shower in 24 hours, no tub bath or soaking. Use incentive spirometer at home as directed. No Smoking Skin/Wound Care: You have special glue over incision, it will fall off on it's own. Symptoms to Report: Appetite Changes, Extremity Discoloration, Numbness/Tingling, Swelling Increased, Bleeding Excessive, Eyesight Changes, Pain Increased, Urine Color Change, Constipation(Persistent), Fever over 101 degree F, Pain/Pressure in chest, Urinating Difficulty, Cough Up/Vomit Blood, Heart Beat Irreg/Pounding, Pain/Pressure in jaw, Vaginal Bleeding Increase, Cramps in feet or legs, Lightheadedness, Pain/Pressure in shoulder, Diarrhea(Persistent), Memory Changes Suddenly, Questions/Concerns, Weight gain consecutive days, Dizziness/Fainting, Nausea/Vomiting, Shortness of Breath, Weight gain over 2 pounds. If eyes or skin turn yellow notify physician. If questions or concerns contact your physician Or seek help at emergency department. ZAIRE BRAUN DO May 20, 2022 10:56
--- NOTE | 2022-05-20 10:57 | Progress Note-Post Operative ---
Post-Operative Progess Note Surgeon (s)/Hydraulics Teacher (s) Surgeon ZAIRE BRAUN DO Hydraulics Teacher: Dr. Gamble to assist in retraction dissection and closure. Pre-Operative Diagnosis Cholelithiasis, RUQ pain Post-Operative Diagnosis same Procedure & Operative Findings Date of Procedure 05/20/22 Procedure Performed/Findings PROCEDURE: Laparoscopic cholecystectomy with intraoperative cholangiogram. COMPLICATIONS: None. PROCEDURE: The patient was taken to the operating suite and was prepped and draped in sterile fashion. A surgical pause was performed. Just superior to the umbilicus, a 12 mm incision was made. Dissection was taken down to the fascia, which was then scored and grasped with a Swati and the abdomen was then entered. A 0 Vicryl suture was placed in a [id number]-ak-rwpih fashion and a Main trocar was placed and secured. Pneumoperitoneum was achieved. A 5mm tro[address] place in the subxyphoid and 2 in the right upper quadrant. The gallbladder was then grasped and elevated. The cystic duct, and cystic artery were then dissected out. Clip was placed on the distal portion of the cystic duct which was then partially transected. An arrow catheter was inserted into the duct. The cholangiogram was then performed. No filing defects and contrast made its way into the duodenum. Catheter removed. Clips were placed on proximal portion of the cystic duct and then the duct was then transected. Clips were placed along the proximal and distal portion of the cystic artery which was then transected. Hook cautery was used to dissect the gallbladder from the gallbladder fossa achieving hemostasis. The gallbladder was placed in an Endobag and removed through the 12 mm trocar site. The abdomen was then reinspected. Copious amounts of irrigation were used to irrigate the abdomen and there were no signs of active bleeding. Hemostasis had been achieved. The 12 mm fascial defect was then closed with 0 Vicryl suture that had been placed in a [id number] fashion. The abdomen was then desufflated, the trocars were removed. The abdomen was then washed and dried. The skin was then closed using 4-0 Monocryl in a subcuticular fashion. The abdomen was washed and dried and Skin Affix was place over incisions. Patient tolerated the procedure well without any complications and was taken to the recovery room in stable condition. Anesthesia Type general Estimated Blood Loss Estimated blood loss (mL): minimal Specimens/Packing Specimens Removed gallbladder ZAIRE BRAUN DO May 20, 2022 10:57
--- NOTE | 2022-05-20 11:03 | Anesthesia-General Post-Op ---
General Patient Condition Mental Status/LOC: Same as Preop Cardiovascular: Satisfactory Nausea/Vomiting: Absent Respiratory: Satisfactory Pain: Controlled Complications: Absent Post Op Complications Complications None Follow Up Care/Instructions Patient Instructions None needed. Anesthesia/Patient Condition Patient Condition Patient is doing well, no complaints, stable vital signs, no apparent adverse anesthesia problems. No complications reported per nursing. SUSIE LAMAS CRNA May 20, 2022 11:03
[2022-05-20] MEDS ORDERED: morphine INJ 10 MG/ML 1ML (SYR OR VIAL) ONE (11:07)
[2022-05-20] MEDS: ONDANSETRON 4 MG/2 ML (SDV) Z0FRAN IVP PRN ×2 (11:13→11:35)
[2022-05-20] MEDS ORDERED: HYDROmorphone 2 MG/ML VIAL (DILAUDID) IV ONE (11:15)
[2022-05-20] MEDS ORDERED: MEPERIDINE (DEMEROL) INJ 50 MG/ML IVP ONE (11:15)
[2022-05-20] MEDS ORDERED: morphine INJ 10 MG/ML 1ML (SYR OR VIAL) IVP ONE (11:15)
[2022-05-20] MEDS ORDERED: HYDROcodone/APAP 5 MG/325 MG (LORTAB) TAB ONE (12:33)
[2022-05-20] MEDS ORDERED: HYDROcodone/APAP 5 MG/325 MG (LORTAB) TAB PO ONE (12:45)
--- NOTE | 2022-05-20 16:11 | Diagnostic Imaging Report ---
INDICATION: Fluoroscopy during intraoperative cholangiogram. Fluoroscopy was provided in the OR during intraoperative cholangiogram. Seven seconds of fluoroscopic time was utilized. Twenty-one images were obtained, demonstrate contrast being injected via the cystic duct remnant. Intrahepatic and extrahepatic bile ducts are normal caliber. No filling defects are seen to suggest retained stone. Contrast does flow into the duodenum. IMPRESSION: Fluoroscopy during intraoperative cholangiogram. Dictated by: Dictated on workstation # [id number]
== END 2022-05-20 12:54 | disposition home or self-care (01) ==
LOC: SDC 09:12
PROVIDERS: ATTEND Surgery
DX: K80.10 Calculus of gallbladder with chronic cholecystitis without obstruction (principal); F17.210 Nicotine dependence, cigarettes, uncomplicated
CPT/HCPCS: 76000; 84703; 87081